=== PATIENT | female | born 1990 | race Caucasian/White ===

== ENCOUNTER 2016-11-13 05:47 | Day surgery (SDC) | payer OTHER, SELFPAY ==
[2016-11-13] MEDS ORDERED: Lactated Ringers 1,000 ML IV SCH (06:30)
[2016-11-13] MEDS ORDERED: SUBLIMAZE 100 MCG/2 ML IV ONE (08:00)
[2016-11-13] MEDS ORDERED: Versed 2 MG/2 ML Injection IV ONE (08:00)
[2016-11-13] MEDS ORDERED: DIPRIVAN 200 MG/20 ML IV ONE (08:00)
[2016-11-13] MEDS ORDERED: Lactated Ringers 1,000 ML IV ONE (08:24)
[2016-11-13 10:20] VITALS: BP 113/84; PULSE 79; O2SAT 98
--- NOTE | 2016-11-13 10:26 | OP ---
SURGERY DATE/TIME: 11/13/2016820 PREOPERATIVE DIAGNOSIS: Chronic diarrhea. POSTOPERATIVE DIAGNOSIS: Normal colon. PROCEDURE: Colonoscopy. SURGEON: Dr. Flores. ANESTHESIA: MAC. Medications given by anesthesia department. HISTORY: The patient is a 26 year-old white female presenting now for chronic diarrhea. The patient is noted to have had previous cholecystectomy. The patient is felt the need to have endoscopic evaluation. The patient was appraised of the risks of the procedure including the risk of perforation, phlebitis, untoward reaction to medication, bleeding, and missed lesions. The patient verbalized her understanding and desired to have the procedure performed. DESCRIPTION OF PROCEDURE: The patient was given the medications by the anesthesia department. She had continuous pulse oximetry, ECG monitoring, intermittent blood pressure monitoring, and tidal CO2 monitoring during the examination. She was placed in the left lateral decubitus position. A digital rectal examination was performed and revealed normal anal sphincter tone and no masses. The flexible Olympus pediatric colonoscope was used to intubate the rectum. A view of the colon was developed sequentially to the cecum including a short distance into the terminal ileum. Upon insertion and withdrawal, including a retroflex view in the rectum, no mucosal lesions were encountered. The scope was removed from the patient who tolerated the procedure well and was sent back to OP recovery in good condition.
== END 2016-11-13 10:00 | disposition home or self-care (01) ==
LOC: SDC 05:47 → EDSTATUS 09:49 → SDC 10:00
PROVIDERS: ATTEND Family Medicine
PROC: 0DJD8ZZ Inspection of Lower Intestinal Tract, Via Natural or Artificial Opening Endoscopic (ICD-10-PCS; principal; 2016-11-13)
DX: K52.9 Noninfective gastroenteritis and colitis, unspecified (principal)
CPT/HCPCS: 00810; 84703; J2250; J2704; J3010

== ENCOUNTER 2017-01-27 19:57 | Emergency (ER) | payer OTHER, SELFPAY ==
[2017-01-27 20:12] VITALS: BP 124/74; PULSE 104; O2SAT 99
--- NOTE | 2017-01-27 20:17 | ERPHSYRPT ---
- History of Present Illness Time Seen by Provider: 01/27/17 20:09 Source: patient Exam Limitations: no limitations Physician History: Pt. with buttock area discomfort for about 1 week and worse in past 2 days. Pt. with previous pilonidal cyst that was I and D about 2 years ago. States there is wound that is palpable and is getting bigger. No fever, chill, nausea or vomiting. No dizziness, weakness or systemic symptoms. Ibuprofen 400mg every 6 hrs for pain. Pt. with prolonged sitting yesterday, which made symptoms worse Timing/Duration: day(s) (7), intermittent Quality: painful Location: other (buttock) Possible Causes: no cause identified Modifying Factors: Improves With: other (sitting worsens) Associated Symptoms: change in skin texture, rash, No fever Allergies/Adverse Reactions: No Known Drug Allergies Allergy (Verified 06/18/16 09:07) Home Medications: Lisinopril 20 mg [Zestril 20 MG] 20 mg PO DAILY 05/31/16 [History] Hx Tetanus, Diphtheria Vaccination/Date Given: Yes Hx Influenza Vaccination/Date Given: Yes (fall 2015) Hx Pneumococcal Vaccination/Date Given: No - Review of Systems Constitutional: No Fever, No Chills Eyes: No Symptoms Ears, Nose, & Throat: No Symptoms Respiratory: No Symptoms, No Cough, No Dyspnea Cardiac: No Symptoms, No Chest Pain, No Edema, No Syncope Abdominal/Gastrointestinal: Constipation, No Abdominal Pain, No Nausea, No Vomiting, No Diarrhea Genitourinary Symptoms: No Symptoms, No Dysuria Musculoskeletal: No Symptoms, No Back Pain, No Neck Pain Skin: Cellulitis, Rash Neurological: No Symptoms, No Dizziness, No Focal Weakness, No Sensory Changes Psychological: No Symptoms Endocrine: No Symptoms All Other Systems: Reviewed and Negative - Past Medical History Pertinent Past Medical History: Yes Neurological History: No Pertinent History ENT History: No Pertinent History Cardiac History: Hypertension Respiratory History: No Pertinent History Endocrine Medical History: No Pertinent History Musculoskeletal History: No Pertinent History GI Medical History: Other History: No Pertinent History Psycho-Social History: No Pertinent History Female Reproductive Disorders: Other Other Medical History: polycystic ovaries - Past Surgical History Past Surgical History: Yes Neuro Surgical History: No Pertinent History Cardiac: No Pertinent History Respiratory: No Pertinent History Gastrointestinal: Cholecystectomy Genitourinary: No Pertinent History Musculoskeletal: No Pertinent History Female Surgical History: Section Other Surgical History: pt had tonsillectomy aug 2015, EGD May 2016 - Social History Smoking Status: Current every day smoker How long have you smoked: 10 years Exposure to second hand smoke: No Drug Use: none Patient Lives Alone: Yes - Female History Hx Now: No - Nursing Vital Signs Nursing Vital Signs: Initial Vital Signs Temperature 99.9 F Temperature Source Oral Pulse Rate 104 Respiratory Rate 16 Blood Pressure [Right Arm] 124/74 Pain Intensity 4 - Physical Exam General Appearance: no apparent distress, alert Eye Exam: PERRL/EOMI, eyes nml inspection Ears, Nose, Throat Exam: normal ENT inspection, pharynx normal, moist mucous membranes Neck Exam: normal inspection, non-tender, supple, full range of motion Respiratory Exam: normal breath sounds, lungs clear, No respiratory distress Cardiovascular Exam: regular rate/rhythm, normal heart sounds Gastrointestinal/Abdomen Exam: soft, mass, No tenderness Back Exam: normal inspection, normal range of motion, No CVA tenderness, No vertebral tenderness Extremity Exam: normal inspection, normal range of motion Neurologic Exam: alert, oriented x 3, cooperative, normal mood/affect, sensation nml, No motor deficits Skin Exam: warm, dry, other (No obvious skin lesions noted but mild tenderness about anal sphincter area with surrounding erythema. No abscess noted presently ) Lymphatic Exam: No adenopathy - Course Nursing assessment & vital signs reviewed: Yes - Progress Progress: unchanged Counseled pt/family regarding: diagnosis - Departure Time of Disposition: 20:20 Departure Disposition: Home Clinical Impression: Cellulitis Condition: Stable Critical Care Time: No Instructions: Cellulitis -- Adult Additional Instructions: RX: Keflex/Cortez Motrin or Tylenol for fever. Return for worse swelling, redness, pain, fever or any problems. Prescriptions: Hydrocodone Bit/Acetaminophen [Cortez 5-325 Tablet] 1 each PO Q6H PRN PRN #12 tablet PRN Reason: Pain Cephalexin Mh 500 mg [Keflex 500 mg] 500 mg PO QID #40 capsule
[2017-01-27] MEDS ORDERED: KEFLEX 500 MG PO ONE (20:24)
[2017-01-27] MEDS ORDERED: KEFLEX 500 MG ONE (20:26)
== END 2017-01-27 20:50 | disposition home or self-care (01) ==
LOC: ED 19:57
DX: L03.90 Cellulitis, unspecified (principal)
CPT/HCPCS: 99283; A9270-GY

== ENCOUNTER 2017-07-20 19:56 | Emergency (ER) | payer OTHER, SELFPAY ==
[2017-07-20] MEDS ORDERED: Nitrostat 0.4 MG (ED) SL ONE ×2 (20:09→20:17)
[2017-07-20] MEDS ORDERED: BABY ASPIRIN 81 MG CHEW PO ONE (20:09)
[2017-07-20] MEDS ORDERED: Sodium Chloride 0.9% 1000 ML 1,000 ML IV STA (20:09)
--- NOTE | 2017-07-20 20:15 | ERPHSYRPT ---
- History of Present Illness Time Seen by Provider: 07/20/17 20:01 Source: patient Exam Limitations: no limitations Patient Subjective Stated Complaint: pt states her bp was elevated at home and her heart rate was in the 120's Triage Nursing Assessment: pt alert and oreinted, asnwers questions approp. respirations nonlabored with gissel ngs cta. skin pink warm and dry. Physician History: FOR THE PAST 3 HOURS PT HAS HAD AN ELEVATED HEART RATE IN THE 120'S, ELEVATED BLOOD PRESSURE OF 140/120, CONSTANT CHEST PRESSURE AND SHORTNESS OF AIR. PT DENIES NAUSEA, VOMITING, FEVER, ABDOMINAL PAIN. Allergies/Adverse Reactions: No Known Drug Allergies Allergy (Verified 07/20/17 20:37) Home Medications: Lisinopril 20 mg [Zestril 20 MG] 20 mg PO DAILY 05/31/16 [History] Metoprolol Succinate 25 mg Xl* [Toprol-Xl 25MG Tablets] 25 mg PO DAILY [History] Hx Tetanus, Diphtheria Vaccination/Date Given: Yes Hx Influenza Vaccination/Date Given: Yes (2016) Hx Pneumococcal Vaccination/Date Given: No - Review of Systems Constitutional: Other (ELEVATED BLOOD PRESSURE), No Fever Respiratory: Dyspnea Cardiac: Other (CHEST PRESSURE; TACHYCARDIA.) Abdominal/Gastrointestinal: No Abdominal Pain, No Nausea, No Vomiting Neurological: No Headache All Other Systems: Reviewed and Negative - Past Medical History Pertinent Past Medical History: Yes Neurological History: No Pertinent History ENT History: No Pertinent History Cardiac History: Hypertension Respiratory History: No Pertinent History Endocrine Medical History: No Pertinent History Musculoskeletal History: No Pertinent History GI Medical History: Other History: No Pertinent History Psycho-Social History: No Pertinent History Female Reproductive Disorders: Other Other Medical History: cysts on ovaries - Past Surgical History Past Surgical History: Yes Neuro Surgical History: No Pertinent History Cardiac: No Pertinent History Respiratory: No Pertinent History Gastrointestinal: Cholecystectomy Genitourinary: No Pertinent History Musculoskeletal: No Pertinent History Female Surgical History: Section Other Surgical History: pt had tonsillectomy aug 2015, EGD May 2016 - Social History Smoking Status: Current every day smoker How long have you smoked: 10 years Exposure to second hand smoke: No Drug Use: none Patient Lives Alone: Yes - Female History Hx Last Menstrual Period: 2 weeks Hx Now: No - Nursing Vital Signs Nursing Vital Signs: Initial Vital Signs Temperature 97.9 F 11/18/17 20:03 Pulse Rate 118 H 07/20/17 20:03 Respiratory Rate 18 07/20/17 20:03 Blood Pressure 138/93 07/20/17 20:03 O2 Sat by Pulse Oximetry 100 07/20/17 20:03 Pain Scale Pain Intensity 0 - Physical Exam General Appearance: alert Eye Exam: PERRL/EOMI Ears, Nose, Throat Exam: TMs normal, pharynx normal, moist mucous membranes Neck Exam: normal inspection Respiratory Exam: lungs clear Cardiovascular Exam: normal heart sounds Gastrointestinal/Abdomen Exam: soft, normal bowel sounds Back Exam: normal range of motion Extremity Exam: normal inspection, No pedal edema Neurologic Exam: alert, cooperative Skin Exam: warm, dry SpO2 Interpretation: normal SpO2: 100 Oxygen Delivery: Room Air - Course Nursing assessment & vital signs reviewed: Yes EKG Interpreted by Me: RATE (93), Sinus Rhythm, NORMAL AXIS, NORMAL QRS - Radiology Exams Chest X-ray Interpretation: Interpreted by me, No Pneumonia Ordered Tests: Active Orders 24 hr Category Date Time Status Delivery Of Shopping News STAT Care 07/20/17 20:11 Active EKG-ER Only STAT Care 07/20/17 20:09 Active IV Insertion STAT Care 07/20/17 20:09 Active Oxygen-ED Only NASAL CANNULA 2 lpm Care 07/20/17 20:09 Active CHEST 2 VIEWS (PA AND LAT) Stat Exams 07/20/17 20:11 Ordered AMYLASE Stat Lab 07/20/17 20:25 Completed BLOOD CULTURE Stat Lab 07/20/17 21:30 Received CBC W DIFF Stat Lab 07/20/17 20:25 Completed CMP Stat Lab 07/20/17 20:25 Completed CULTURE,URINE Stat Lab 07/20/17 20:25 Received HCG QUALITATIVE,SERUM Stat Lab 07/20/17 20:25 Completed LIPASE Stat Lab 07/20/17 20:25 Completed MAGNESIUM Stat Lab 07/20/17 20:25 Completed NT PRO BNP Stat Lab 07/20/17 20:25 Completed T4 Stat Lab 07/20/17 20:25 Completed TROPONIN Q3H Lab 07/20/17 20:25 Completed TROPONIN Q3H Lab 07/20/17 23:15 Ordered TROPONIN Q3H Lab 07/21/17 02:15 Ordered TROPONIN Q3H Lab 07/21/17 05:15 Ordered TROPONIN Q3H Lab 07/21/17 08:15 Ordered TSH [TSH, 3RD Generation] Stat Lab 07/20/17 20:25 Completed UA W/ MICROSCOPIC Stat Lab 07/20/17 20:25 Completed Urine Triage Profile Stat Lab 07/20/17 20:25 Completed Medication Summary Discontinued Medications Generic Name Dose Route Start Last Admin Trade Name Chelsey PRN Reason Stop Dose Admin Aspirin 324 mg 07/20/17 20:09 07/20/17 20:18 Baby Aspirin 81 Mg Chew PO 07/20/17 20:10 324 mg STAT ONE Administration Aspirin Confirm 07/20/17 20:16 Baby Aspirin 81 Mg Chew Administered 07/20/17 20:17 Dose 324 mg .ROUTE .STK-MED ONE Sodium Chloride 1,000 mls @ 999 mls/hr 07/20/17 20:09 07/20/17 20:18 Sodium Chloride 0.9% 1000 Ml IV 07/20/17 21:09 999 mls/hr .Q1H1M STA Administration Sodium Chloride Confirm 07/20/17 20:17 Sodium Chloride 0.9% 1000 Ml Administered 07/20/17 20:18 Dose 1,000 mls @ ud .ROUTE .STK-MED ONE Ceftriaxone Sodium/Dextrose 1 g in 50 mls @ 100 mls/hr 07/20/17 21:10 21:18 Rocephin 1 Gm-D5w 50 Ml Bag IV 07/20/17 21:39 100 mls/hr STAT STA Administration Ceftriaxone Sodium/Dextrose Confirm 07/20/17 21:16 Rocephin 1 Gm-D5w 50 Ml Bag Administered 07/20/17 21:17 Dose 1 g in 50 mls @ ud IV .STK-MED ONE Nitroglycerin 0.4 mg 07/20/17 20:09 07/20/17 20:18 Nitrostat 0.4 Mg (Ed) SL 07/20/17 20:10 0.4 mg STAT ONE Administration Nitroglycerin Confirm 07/20/17 20:17 Nitrostat 0.4 Mg (Ed) Administered 07/20/17 20:18 Dose 0.4 mg SL .STK-MED ONE Lab/Rad Data: Laboratory Result Diagrams 07/20/17 20:25 07/20/17 20:25 Laboratory Results 07/20/17 07/20/1707/20/17 Range/Units 20:25 20:25 20:25 WBC 9.6 (4.0-10.5) K/mm3 RBC 4.96 (4.1-5.4) M/mm3 Hgb 15.2 (12.0-16.0) gm/dl Hct 46.1 (35-47) % MCV 92.9 (78-100) fl MCH 30.6 (26-32) pg MCHC 33.0 (32-36) g/dl RDW 12.1 (11.5-14.0) % Plt Count 187 (150-450) K/mm3 MPV 10.8 H (6-9.5) fl Gran % 54.3 (36.0-66.0) % Lymphocytes % 33.1 (24.0-44.0) % Monocytes % 10.6 (0.0-12.0) % Eosinophils % 1.8 (0.00-5.0) % Basophils % 0.2 (0.0-0.4) % Basophils # 0.02 (0-0.4) Sodium (136-145) mEq/L Potassium (3.5-5.1) mEq/L Chloride (98-107) mEq/L Carbon Dioxide (21-32) mEq/L Anion Gap (5-15) MEQ/L BUN (9-20) mg/dL Creatinine (0.55-1.30) mg/dl Estimated GFR ML/MIN Glucose (70-110) MG/DL Calcium (8.5-10.1) mg/dL Magnesium (1.8-2.4) mg/dL Total Bilirubin (0.2-1.0) mg/dL AST (15-37) U/L ALT (12-78) U/L Alkaline Phosphatase (46-116) U/L Troponin I < 0.017 (0.000-0.056) ng/ml NT-Pro-B Natriuret Pep (0-125) pg/ml Serum Total Protein (6.4-8.2) gm/dL Albumin (3.4-5.0) g/dL Amylase (25-115) U/L Lipase (73-393) U/L Thyroxine (T4) (4.7-13.3) UG/DL TSH 3rd Generation (0.358-3.740) mIU/L Serum , Qual NEGATIVE (Negative) Ur Collection Type Urine Color (YELLOW) Urine Appearance (CLEAR) Urine pH (5-6) Ur Specific Baxter (1.005-1.025) Urine Protein (Negative) Urine Ketones (NEGATIVE) Urine Blood (0-5) Garo/ul Urine Nitrite (NEGATIVE) Urine Bilirubin (NEGATIVE) Urine Urobilinogen (0-1) mg/dL Ur Leukocyte Esterase (NEGATIVE) Urine Microscopic RBC (0-2) /HPF Urine Microscopic WBC (0-5) /HPF Ur Epithelial Cells (FEW) /HPF Amorphous Crystals (NEGATIVE) /HPF Urine Bacteria (NEGATIVE) /HPF Urine Culture Reflexed (NO) Urine Glucose (NEGATIVE) mg/dL Urine Opiates Level (NEGATIVE) Ur Methadone (NEGATIVE) Urine Barbiturates (NEGATIVE) Ur Phencyclidine (PCP) (NEGATIVE) Urine Amphetamine (NEGATIVE) U Benzodiazepine Level (NEGATIVE) Urine Cocaine (NEGATIVE) Urine Marijuana (THC) (NEGATIVE) Specimen Received 07/20/17 07/20/17 07/20/17 Range/Units 20:25 20:25 20:25 WBC (4.0-10.5) K/mm3 RBC (4.1-5.4) M/mm3 Hgb (12.0-16.0) gm/dl Hct (35-47) % MCV (78-100) fl MCH (26-32) pg MCHC (32-36) g/dl RDW (11.5-14.0) % Plt Count (150-450) K/mm3 MPV (6-9.5) fl Gran % (36.0-66.0) % Lymphocytes % (24.0-44.0) % Monocytes % (0.0-12.0) % Eosinophils % (0.00-5.0) % Basophils % (0.0-0.4) % Basophils # (0-0.4) Sodium (136-145) mEq/L Potassium (3.5-5.1) mEq/L Chloride (98-107) mEq/L Carbon Dioxide (21-32) mEq/L Anion Gap (5-15) MEQ/L BUN (9-20) mg/dL Creatinine (0.55-1.30) mg/dl Estimated GFR ML/MIN Glucose (70-110) MG/DL Calcium (8.5-10.1) mg/dL Magnesium (1.8-2.4) mg/dL Total Bilirubin (0.2-1.0) mg/dL AST (15-37) U/L ALT (12-78) U/L Alkaline Phosphatase (46-116) U/L Troponin I (0.000-0.056) ng/ml NT-Pro-B Natriuret Pep (0-125) pg/ml Serum Total Protein (6.4-8.2) gm/dL Albumin (3.4-5.0) g/dL Amylase (25-115) U/L Lipase (73-393) U/L Thyroxine (T4) 9.5 (4.7-13.3) UG/DL TSH 3rd Generation 3.240 (0.358-3.740) mIU/L Serum , Qual (Negative) Ur Collection Type CLEAN CATCH Urine Color YELLOW (YELLOW) Urine Appearance CLEAR (CLEAR) Urine pH 7.0 (5-6) Ur Specific Baxter 1.015 (1.005-1.025) Urine Protein NEGATIVE (Negative) Urine Ketones NEGATIVE (NEGATIVE) Urine Blood 250 (0-5) Garo/ul Urine Nitrite NEGATIVE (NEGATIVE) Urine Bilirubin NEGATIVE (NEGATIVE) Urine Urobilinogen NORMAL (0-1) mg/dL Ur Leukocyte Esterase 2+ (NEGATIVE) Urine Microscopic RBC 5-10 (0-2) /HPF Urine Microscopic WBC 5-10 (0-5) /HPF Ur Epithelial Cells MODERATE (FEW) /HPF Amorphous Crystals MODERATE (NEGATIVE) /HPF Urine Bacteria FEW (NEGATIVE) /HPF Urine Culture Reflexed YES (NO) Urine Glucose NEGATIVE (NEGATIVE) mg/dL Urine Opiates Level NEG. (NEGATIVE) Ur Methadone NEG. (NEGATIVE) Urine Barbiturates NEG. (NEGATIVE) Ur Phencyclidine (PCP) NEG. (NEGATIVE) Urine Amphetamine NEG. (NEGATIVE) U Benzodiazepine Level NEG. (NEGATIVE) Urine Cocaine NEG. (NEGATIVE) Urine Marijuana (THC) NEG. (NEGATIVE) Specimen Received 07/20/17202407/20/17 Range/Units 20:25 WBC (4.0-10.5) K/mm3 RBC (4.1-5.4) M/mm3 Hgb (12.0-16.0) gm/dl Hct (35-47) % MCV (78-100) fl MCH (26-32) pg MCHC (32-36) g/dl RDW (11.5-14.0) % Plt Count (150-450) K/mm3 MPV (6-9.5) fl Gran % (36.0-66.0) % Lymphocytes % (24.0-44.0) % Monocytes % (0.0-12.0) % Eosinophils % (0.00-5.0) % Basophils % (0.0-0.4) % Basophils # (0-0.4) Sodium 141 (136-145) mEq/L Potassium 3.7 (3.5-5.1) mEq/L Chloride 103 (98-107) mEq/L Carbon Dioxide 26.3 (21-32) mEq/L Anion Gap 15.0 (5-15) MEQ/L BUN 14 (9-20) mg/dL Creatinine 0.98 (0.55-1.30) mg/dl Estimated GFR > 60 ML/MIN Glucose 94 (70-110) MG/DL Calcium 9.2 (8.5-10.1) mg/dL Magnesium 2.1 (1.8-2.4) mg/dL Total Bilirubin 0.40 (0.2-1.0) mg/dL AST 40 H (15-37) U/L ALT 115 H (12-78) U/L Alkaline Phosphatase 124 H (46-116) U/L Troponin I (0.000-0.056) ng/ml NT-Pro-B Natriuret Pep 6 (0-125) pg/ml Serum Total Protein 8.3 H (6.4-8.2) gm/dL Albumin 4.4 (3.4-5.0) g/dL Amylase 71 (25-115) U/L Lipase 237 (73-393) U/L Thyroxine (T4) (4.7-13.3) UG/DL TSH 3rd Generation (0.358-3.740) mIU/L Serum , Qual (Negative) Ur Collection Type Urine Color (YELLOW) Urine Appearance (CLEAR) Urine pH (5-6) Ur Specific Baxter (1.005-1.025) Urine Protein (Negative) Urine Ketones (NEGATIVE) Urine Blood (0-5) Garo/ul Urine Nitrite (NEGATIVE) Urine Bilirubin (NEGATIVE) Urine Urobilinogen (0-1) mg/dL Ur Leukocyte Esterase (NEGATIVE) Urine Microscopic RBC (0-2) /HPF Urine Microscopic WBC (0-5) /HPF Ur Epithelial Cells (FEW) /HPF Amorphous Crystals (NEGATIVE) /HPF Urine Bacteria (NEGATIVE) /HPF Urine Culture Reflexed (NO) Urine Glucose (NEGATIVE) mg/dL Urine Opiates Level (NEGATIVE) Ur Methadone (NEGATIVE) Urine Barbiturates (NEGATIVE) Ur Phencyclidine (PCP) (NEGATIVE) Urine Amphetamine (NEGATIVE) U Benzodiazepine Level (NEGATIVE) Urine Cocaine (NEGATIVE) Urine Marijuana (THC) (NEGATIVE) Specimen Received - Departure Time of Disposition: 21:59 Departure Disposition: Home Clinical Impression: CHEST PRESSURE, UTI, HTN Condition: Stable Critical Care Time: No Referrals: ARDEN BATISTA [Primary Care Provider] - Instructions: Chest Pain, Urinary Tract Infection (UTI) Additional Instructions: FOLLOW UP WITH PRIVATE DOCTOR TOMORROW. Prescriptions: Smz/Tmp Ds Tablet [Bactrim Ds Tablet] 1 udtab PO BID #20 tablet
[2017-07-20] MEDS ORDERED: BABY ASPIRIN 81 MG CHEW ONE (20:16)
[2017-07-20] MEDS ORDERED: Sodium Chloride 0.9% 1000 ML 1,000 ML ONE (20:17)
[2017-07-20 20:48] LABS: BASOPHIL % 0.2 % (0.0-0.4); Eosinophil % 1.8 % (0.00-5.0); Granulocytes % 54.3 % (36.0-66.0); Lymphocytes % 33.1 % (24.0-44.0); Mean Cell Volume 92.9 fl (78-100); Mean Corpuscular Hemoglobin 30.6 pg (26-32); Mean Platelet Volume 10.8 fl (6-9.5); Monocytes % 10.6 % (0.0-12.0); Platelet Count 187 K/mm3 (150-450); Red Blood Count 4.96 M/mm3 (4.1-5.4); Red Cell Distribution Width 12.1 % (11.5-14.0); White Blood Count 9.6 K/mm3 (4.0-10.5)
[2017-07-20 20:59] LABS: Collection Type CLEAN CATCH
[2017-07-20 21:05] LABS: Leukocyte Esterase 2+ (NEGATIVE)
[2017-07-20 21:06] LABS: Bilirubin NEGATIVE (NEGATIVE); Blood 250 Ery/ul (0-5); COMPLETE URINE MICROSCOPIC? YES; Glucose NEGATIVE (NEGATIVE)
[2017-07-20 21:08] LABS: ADD URINE CULTURE? YES (NO); Bacteria FEW /HPF (NEGATIVE); Epithelial Cells MODERATE /HPF (FEW)
[2017-07-20] MEDS ORDERED: ROCEPHIN 1 Gm-D5w 50 ml Bag** 1 G/50 ML IVPB IV STA (21:10)
[2017-07-20 21:16] LABS: ALBUMIN 4.4 g/dL (3.4-5.0); ALKALINE PHOSPHATASE 124 U/L (46-116); BLOOD UREA NITROGEN 14 mg/dL (9-20); CHLORIDE 103 mEq/L (98-107); Carbon Dioxide 26.3 mEq/L (21-32); Glucose 94 MG/DL (70-110); LIPASE 237 U/L (73-393); MAGNESIUM 2.1 mg/dL (1.8-2.4); Potassium 3.7 mEq/L (3.5-5.1); SGOT/AST 40 U/L (15-37); SGPT/ALT 115 U/L (12-78); SODIUM 141 mEq/L (136-145); Total Protein 8.3 gm/dL (6.4-8.2)
[2017-07-20] MEDS ORDERED: ROCEPHIN 1 Gm-D5w 50 ml Bag** 1 G/50 ML IVPB IV ONE (21:16)
[2017-07-20 22:12] VITALS: BP 128/88; PULSE 84; O2SAT 99
--- NOTE | 2017-07-21 09:03 | XRAY ---
Indication: Chest pain and short of breath. Hypertension. Comparison: September 02, 2014. PA/lateral chest again demonstrates normal heart, lungs, and bony thorax with a few incidental calcified granulomas.
== END 2017-07-20 22:11 | disposition home or self-care (01) ==
LOC: ED 19:56
DX: R07.89 Other chest pain (principal); N39.0 Urinary tract infection, site not specified; I10 Essential (primary) hypertension; Z79.899 Other long term (current) drug therapy
CPT/HCPCS: 36000; 36415; 71020; 80053; 80307; 81000; 82150; 83690; 83735; 83880; 84436; 84443; 84484; 84703; 85025; 87040; 87086; 93005; 93041; 96360; 96365; 99284; J0696; A9270-GY

== ENCOUNTER 2017-09-13 19:01 | Emergency (ER) | payer OTHER ==
[2017-09-13] MEDS ORDERED: DILAUDID 2 MG INJECTION IM STA (19:25)
[2017-09-13] MEDS ORDERED: Phenergan 25 MG INJ IM ONE (19:26)
[2017-09-13] MEDS ORDERED: Hydromorphone 1 mg/ml Ampule ONE (19:31)
[2017-09-13] MEDS ORDERED: Phenergan 25 MG INJ ONE (19:31)
--- NOTE | 2017-09-13 19:34 | ERPHSYRPT ---
- History of Present Illness Time Seen by Provider: 09/13/17 19:20 Source: patient Exam Limitations: clinical condition Patient Subjective Stated Complaint: Back Pain Triage Nursing Assessment: Pt states she was lifting a cough when she felt a "pop" in her right lower back. Pt states pain radiates to right hip, worse with movement. Motrin 600mg at 1700. No distress noted. Skin PWD. Physician History: PATIENT WITH A HISTORY OF HYPERTENSION COMPLAINS OF SEVERE BACK PAIN WHILE MOVING A COUCH, FELT POP IN LOWER BACK, STATES SEVERE PAIN RADIATES TO RIGHT BUTTOCK. Timing/Duration: today, other (2 HOURS AGO) Method of Injury: other (PUSHING COUCH.) Quality: sharp, throbbing Back Pain Location: lumbar spine Back Pain Radiation: buttocks Severity of Pain-Max: severe Modifying Factors: Improves With: movement Associated Symptoms: lower back pain, muscle spasms Previous symptoms: no prior history Allergies/Adverse Reactions: No Known Drug Allergies Allergy (Verified 07/20/17 20:37) Home Medications: Lisinopril 20 mg [Zestril 20 MG] 20 mg PO DAILY 05/31/16 [History] Metoprolol Succinate 25 mg Xl* [Toprol-Xl 25MG Tablets] 25 mg PO DAILY [History] Hx Tetanus, Diphtheria Vaccination/Date Given: Yes Hx Influenza Vaccination/Date Given: Yes Hx Pneumococcal Vaccination/Date Given: No Immunizations Up to Date: Yes - Review of Systems Constitutional: No Fever, No Chills Eyes: No Symptoms Ears, Nose, & Throat: No Symptoms Respiratory: No Cough, No Dyspnea Cardiac: No Chest Pain, No Edema, No Syncope Abdominal/Gastrointestinal: No Abdominal Pain, No Nausea, No Vomiting, No Diarrhea Genitourinary Symptoms: No Dysuria Musculoskeletal: Injury, No Back Pain, No Neck Pain Skin: No Rash Neurological: No Symptoms, No Dizziness, No Focal Weakness, No Sensory Changes Psychological: No Symptoms Endocrine: No Symptoms All Other Systems: Reviewed and Negative - Past Medical History Pertinent Past Medical History: Yes Neurological History: No Pertinent History ENT History: No Pertinent History Cardiac History: Arrhythmia, Hypertension Respiratory History: No Pertinent History Endocrine Medical History: No Pertinent History Musculoskeletal History: No Pertinent History GI Medical History: Other History: No Pertinent History Psycho-Social History: No Pertinent History Female Reproductive Disorders: Other Other Medical History: cysts on ovaries, tachycardia - Past Surgical History Past Surgical History: Yes Neuro Surgical History: No Pertinent History Cardiac: No Pertinent History Respiratory: No Pertinent History Gastrointestinal: Cholecystectomy Genitourinary: No Pertinent History Musculoskeletal: No Pertinent History Female Surgical History: Section Other Surgical History: pt had tonsillectomy aug 2015, EGD May 2016 - Social History Smoking Status: Current every day smoker How long have you smoked: 10 years Exposure to second hand smoke: Yes Drug Use: none Patient Lives Alone: No - Female History Hx Last Menstrual Period: 09/10/2017 Hx Now: No - Nursing Vital Signs Nursing Vital Signs: Initial Vital Signs Temperature 98.5 F 09/13/17 19:11 Pulse Rate 120 H 09/13/17 19:11 Respiratory Rate 14 09/13/17 19:11 Blood Pressure 141/92 09/13/17 19:11 O2 Sat by Pulse Oximetry 99 09/13/17 19:11 Pain Scale Pain Intensity [Back] 7 Pain Intensity 2 - Physical Exam General Appearance: moderate distress Eye Exam: PERRL/EOMI, eyes nml inspection Neck Exam: normal inspection, non-tender, supple, full range of motion, No meningismus, No midline tenderness Respiratory Exam: normal breath sounds, lungs clear, No respiratory distress Cardiovascular Exam: regular rate/rhythm, normal heart sounds Back Exam: normal inspection, vertebral tenderness, decreased range of motion, muscle spasm, point tenderness (MARKED TENDERNESS RIGHT SACROILIAC JOINT ) Peripheral Pulses: carotid (R): 2+, carotid (L): 2+, femoral (R): 2+, femoral (L ): 2+, dorsalis-pedis (R): 2+, dorsalis-pedis (L): 2+ Neurologic Exam: alert, oriented x 3, cooperative Skin Exam: normal color, warm SpO2 Interpretation: normal SpO2: 99 Oxygen Delivery: Room Air - CT Exams Lumbar Spine CT Interpretation: Tele-radiologist Report (NO ACUTE FINDINGS, NO FRACTURE ) Ordered Tests: Active Orders 24 hr Category Date Time Status LUMBAR SPINE W/O [CT] Stat Exams 09/13/17 20:15 Taken HCG,QUALITATIVE URINE Stat Lab 09/13/17 19:45 Completed Medication Summary Discontinued Medications Generic Name Dose Route Start Last Admin Trade Name Freq PRN Reason Stop Dose Admin Hydromorphone HCl 2 mg 09/13/17 19:25 09/13/17 19:36 Dilaudid 2 Mg Injection IM 09/13/17 19:26 2 mg STAT STA Administration Hydromorphone HCl Confirm 09/13/17 19:31 Hydromorphone 1 Mg/Ml Ampule Administered 09/13/17 19:32 Dose 2 mg .ROUTE .STK-MED ONE Promethazine HCl 25 mg 09/13/17 19:26 09/13/17 19:36 Phenergan 25 Mg Inj IM 09/13/17 19:27 25 mg STAT ONE Administration Promethazine HCl Confirm 09/13/17 19:31 Phenergan 25 Mg Inj Administered 09/13/17 19:32 Dose 25 mg .ROUTE .STK-MED ONE Lab/Rad Data: Laboratory Results 09/13/17 Range/Units 19:45 Urine HCG, Qual NEGATIVE (Negative) - Progress Progress: improved Progress Note: 09/13/17 19:37 ADMINISTERED DILAUDID 2MG/ PHENERGAN 25MG IM Counseled pt/family regarding: diagnosis, need for follow-up, rad results - Departure Time of Disposition: 21:20 Departure Disposition: Home Clinical Impression: ACUTE LUMBAR STRAIN Condition: Stable Critical Care Time: No Referrals: ARDEN BATISTA [Primary Care Provider] - Additional Instructions: FOLLOWUP WITH YOUR PRIMARY CARE PROVIDER FOR EVALUATION. MOTRIN 600MG EVERY 6 HOURS FOR MILD TO MODERATE PAIN. ULTRAM 50MG EVERY 6 HOURS FOR SEVERE PAIN AND NORFLEX 100MG TWICE DAILY FOR MUSCLE SPASM. RETURN TO EMERGENCY FOR INCREASING PAIN. Prescriptions: Ibuprofen 600 mg PO Q6HPRN PRN #20 tablet PRN Reason: Pain Tramadol HCl 50 mg [Ultram 50 mg] 50 mg PO Q6HPRN PRN #15 tablet PRN Reason: Pain Orphenadrine Citrate 100 mg [Norflex 100 MG Tablet] 100 mg PO BIDPRN PRN # 10 tab PRN Reason: Muscle Spasms Tramadol HCl 50 mg [Ultram 50 mg] 50 mg PO BIDPRN PRN #15 tablet PRN Reason: Pain
[2017-09-13 21:05] VITALS: BP 127/90; PULSE 95; O2SAT 99
--- NOTE | 2017-09-14 06:29 | XRAY ---
Indication: Right lower back pain radiating to right hip for 3 hours. Multiple contiguous axial images obtained through the lumbar spine. Sagittal and coronal reformatted images obtained. Comparison: CT abdomen and pelvis January 31, 2016. Stable L4-L5 broad-based disc bulge minimally effacing the thecal sac and producing bilateral foraminal narrowing. Remaining levels negative for large disc herniation or spinal canal stenosis. Facets are symmetric. Sagittal and coronal reformatted images demonstrates normal lumbar alignment. Vertebral body heights and disc spaces maintained. No acute compression fracture or subluxation. Visualized noncontrasted soft tissues unremarkable. Previous cholecystectomy. Impression: Stable L4-L5 broad-based disc bulge better evaluated with outpatient MRI. Comment: Preliminary interpretation was made by [facility]. No critical discrepancy. CTDI 127.30
== END 2017-09-13 21:41 | disposition home or self-care (01) ==
LOC: ED 19:01
DX: S39.012A Strain of muscle, fascia and tendon of lower back, initial encounter (principal); R05 Cough; I10 Essential (primary) hypertension; Z79.899 Other long term (current) drug therapy
CPT/HCPCS: 72131; 84703; 99284; J1170; J2550

== ENCOUNTER 2018-04-28 19:11 | Emergency (ER) | payer BC, OTHER ==
--- NOTE | 2018-04-28 20:05 | ERPHSYRPT ---
- History of Present Illness Time Seen by Provider: 04/28/18 19:56 Source: patient, family Exam Limitations: no limitations Patient Subjective Stated Complaint: pt arrives to ER with c/o Sorethroat that began Saturday and fever as high as 100.5F, kept down with Tylenol. pt believes has strept throat, states is painful to swallow. Pt also c/o right earache. Triage Nursing Assessment: see above. Physician History: The patient is a 28-year-old female with her mother complaining of a sore throat that began on Saturday, 3 days ago. She's had a fever as high as 100.5. She has been taking Tylenol. She also has a right earache that she thinks this is due to the sore throat. She denies nausea or vomiting. She's had strep throat in the past. She's had a tonsillectomy. Her past medical history is also significant for hypertension. Timing/Duration: gradual onset, days (3) Severity: moderate ENT Location: throat Prearrival Treatment: over the counter meds Modifying Factors: Improves With: nothing Associated Symptoms: ear pain (R), fever, sore throat Allergies/Adverse Reactions: No Known Drug Allergies Allergy (Verified 04/28/18 19:47) Home Medications: Lisinopril 20 mg [Zestril 20 MG] 20 mg PO DAILY 05/31/16 [History] Metoprolol Succinate 25 mg Xl* [Toprol-Xl 25MG Tablets] 25 mg PO DAILY [History] Hx Tetanus, Diphtheria Vaccination/Date Given: Yes Hx Influenza Vaccination/Date Given: Yes Hx Pneumococcal Vaccination/Date Given: No - Review of Systems Constitutional: Fever Eyes: No Symptoms Ears, Nose, & Throat: Ear Pain (rsight), Throat Pain Respiratory: No Cough, No Dyspnea Cardiac: No Chest Pain, No Edema, No Syncope Abdominal/Gastrointestinal: No Abdominal Pain, No Nausea, No Vomiting, No Diarrhea Genitourinary Symptoms: No Dysuria Musculoskeletal: No Back Pain, No Neck Pain Skin: No Rash Neurological: No Dizziness, No Focal Weakness, No Sensory Changes Psychological: No Symptoms Endocrine: No Symptoms Hematologic/Lymphatic: No Symptoms Immunological/Allergic: No Symptoms All Other Systems: Reviewed and Negative - Past Medical History Pertinent Past Medical History: Yes Neurological History: No Pertinent History ENT History: No Pertinent History Cardiac History: Arrhythmia, Hypertension Respiratory History: No Pertinent History Endocrine Medical History: No Pertinent History Musculoskeletal History: No Pertinent History GI Medical History: Other History: No Pertinent History Psycho-Social History: No Pertinent History Female Reproductive Disorders: Other Other Medical History: cysts on ovaries, tachycardia - Past Surgical History Past Surgical History: Yes Neuro Surgical History: No Pertinent History Cardiac: No Pertinent History Respiratory: No Pertinent History Gastrointestinal: Cholecystectomy Genitourinary: No Pertinent History Musculoskeletal: No Pertinent History Female Surgical History: Section Other Surgical History: pt had tonsillectomy aug 2015, EGD May 2016 - Social History Smoking Status: Current every day smoker How long have you smoked: 10 years Exposure to second hand smoke: Yes Drug Use: none Patient Lives Alone: No - Female History Hx Now: No - Nursing Vital Signs Nursing Vital Signs: Initial Vital Signs Temperature 99.2 F 04/28/18 19:40 Pulse Rate 101 H 04/28/18 19:40 Respiratory Rate 18 04/28/18 19:40 Blood Pressure 137/106 04/28/18 19:40 O2 Sat by Pulse Oximetry 98 04/28/18 19:40 Pain Scale Pain Intensity 1 - Physical Exam General Appearance: no apparent distress, alert Eye Exam: bilateral eye: normal inspection, PERRL Ear Exam: bilateral ear: auricle normal, canal normal, TM normal Nasal Exam: normal inspection Throat Exam: pharynx normal, No tonsillar exudate, No tonsillar swelling ( tonsils surgically absent) Neck Exam: supple Cardiovascular/Respiratory Exam: normal breath sounds, regular rate/rhythm Abdominal Exam: non-tender, soft Neurologic Exam: alert, oriented x 3, sensation nml, No motor deficits Skin Exam: normal color, warm, dry SpO2 Interpretation: normal SpO2: 98 Oxygen Delivery: Room Air Ordered Tests: Medication Summary Discontinued Medications Generic Name Dose Route Start Last Admin Trade Name Freq PRN Reason Stop Dose Admin Ketorolac Tromethamine 60 mg 04/28/18 20:08 04/28/18 20:25 Toradol 30 Mg Injection IM 04/28/18 20:09 60 mg STAT ONE Administration Ketorolac Tromethamine Confirm 04/28/18 20:21 Toradol 30 Mg Injection Administered 04/28/18 20:22 Dose 30 mg .ROUTE .STK-MED ONE Ketorolac Tromethamine Confirm 04/28/18 20:21 Toradol 30 Mg Injection Administered 04/28/18 20:22 Dose 30 mg .ROUTE .STK-MED ONE Lab/Rad Data: Laboratory Results 04/28/18 Range/Units 19:45 Group A Strep Antibody NEGATIVE (NEGATIVE) - Progress Progress: improved Counseled pt/family regarding: lab results, diagnosis - Departure Time of Disposition: 21:06 Departure Disposition: Home Clinical Impression: Pharyngitis Condition: Stable Critical Care Time: No Referrals: ARDEN BATISTA [Primary Care Provider] - Additional Instructions: You have viral pharyngitis. Your strep test was negative. You were given Toradol 60 mg by IM in the ER. You may continue with Tylenol and ibuprofen as needed. Gargle with warm salt water as needed. Follow-up as needed.
[2018-04-28] MEDS ORDERED: TORAdol 30 mg Injection IM ONE (20:08)
[2018-04-28] MEDS ORDERED: TORAdol 30 mg Injection ONE ×2 (20:21)
[2018-04-28 21:16] VITALS: BP 120/87; PULSE 87; O2SAT 97
== END 2018-04-28 21:16 | disposition home or self-care (01) ==
LOC: ED 19:11
DX: J02.9 Acute pharyngitis, unspecified (principal); H92.01 Otalgia, right ear
CPT/HCPCS: 87651; 96372; 99284; J1885

== ENCOUNTER 2018-05-02 07:55 | Emergency (ER) | payer BC, OTHER ==
--- NOTE | 2018-05-02 08:23 | ERPHSYRPT ---
- History of Present Illness Time Seen by Provider: 05/02/18 08:22 Source: patient Exam Limitations: no limitations Patient Subjective Stated Complaint: Right hand injury Triage Nursing Assessment: Patient ambulated to ER and transferred self to bed. Patient A+O x 3. Patient complains of right hand pain. Patient was trying put dog back in house and right hand caught the doorway and part of her hand went sideways. Patient's hand is noted to be painful and swollen. No bruising noted. Physician History: 28 y/o right handed white female presents with right hand injury. occurred this am when she was walking her dog and hand became tangled in leash. Occurred: just prior to arrival Method of Injury: twisted Quality: intermittent, aching, throbbing Severity of Pain-Max: moderate Severity of Pain-Current: mild Extremities Pain Location: wrist: right, hand: right Modifying Factors: Improves With: movement (worsens) Associated Symptoms: none, No back pain, No chest discomfort, No chest pain, No dyspnea, No neck pain, No short of breath Allergies/Adverse Reactions: No Known Drug Allergies Allergy (Verified 05/02/18 08:08) Home Medications: Lisinopril 20 mg [Zestril 20 MG] 20 mg PO DAILY 05/31/16 [History] Metoprolol Succinate 25 mg Xl* [Toprol-Xl 25MG Tablets] 25 mg PO DAILY [History] Hx Tetanus, Diphtheria Vaccination/Date Given: Yes Hx Influenza Vaccination/Date Given: Yes Hx Pneumococcal Vaccination/Date Given: No Immunizations Up to Date: Yes - Review of Systems Constitutional: No Symptoms Eyes: No Symptoms Ears, Nose, & Throat: No Symptoms Respiratory: No Symptoms Cardiac: No Symptoms Abdominal/Gastrointestinal: No Symptoms Genitourinary Symptoms: No Symptoms Musculoskeletal: Injury (right hand and wrist) Skin: No Symptoms Neurological: No Symptoms Psychological: No Symptoms Endocrine: No Symptoms Hematologic/Lymphatic: No Symptoms Immunological/Allergic: No Symptoms All Other Systems: Reviewed and Negative - Past Medical History Pertinent Past Medical History: Yes Neurological History: No Pertinent History ENT History: No Pertinent History Cardiac History: Arrhythmia, Hypertension Respiratory History: No Pertinent History Endocrine Medical History: No Pertinent History Musculoskeletal History: No Pertinent History GI Medical History: Other History: No Pertinent History Psycho-Social History: No Pertinent History Female Reproductive Disorders: Other Other Medical History: cysts on ovaries, tachycardia - Past Surgical History Past Surgical History: Yes Neuro Surgical History: No Pertinent History Cardiac: No Pertinent History Respiratory: No Pertinent History Gastrointestinal: Cholecystectomy Genitourinary: No Pertinent History Musculoskeletal: No Pertinent History Female Surgical History: Section Other Surgical History: pt had tonsillectomy aug 2015, EGD May 2016 - Social History Smoking Status: Current every day smoker How long have you smoked: 10 years Exposure to second hand smoke: No Drug Use: none Patient Lives Alone: No - Female History Hx Last Menstrual Period: 4 days ago Hx Now: No - Nursing Vital Signs Nursing Vital Signs: Initial Vital Signs Temperature 98.0 F 05/02/18 08:02 Pain Scale Pain Intensity 8 - Physical Exam General Appearance: mild distress, alert, anxiety Eyes, Ears, Nose, Throat Exam: normal ENT inspection Neck Exam: normal inspection, non-tender, supple, full range of motion Cardiovascular/Respiratory Exam: chest non-tender, normal breath sounds Abdominal Exam: non-tender Back Exam: normal inspection, normal range of motion, No CVA tenderness, No vertebral tenderness Shoulder Exam: normal inspection, non-tender, no evidence of injury, normal ROM Elbow/Forearm Exam: normal inspection, non-tender, no evidence of injury, normal ROM Wrist Exam: normal ROM, bone tenderness Hand Exam: normal ROM, abrasions, soft tissue tenderness, swelling Neuro/Tendon Exam: normal sensation, normal motor functions, normal tendon functions, responds to pain, no evidence tendon injury Mental Status Exam: alert, oriented x 3, cooperative Skin Exam: normal color, warm, dry, abrasion SpO2 Interpretation: normal SpO2: 100 Oxygen Delivery: Room Air - Course Nursing assessment & vital signs reviewed: Yes Ordered Tests: Active Orders 24 hr Category Date Time Status HAND (MINIMUM 3 VIEWS) Stat Exams 05/02/18 08:23 Completed WRIST (MIN 3 VIEWS) Stat Exams 05/02/18 08:23 Completed Lab/Rad Data: xray right hand and wrist no acute findings - Progress Progress: unchanged Counseled pt/family regarding: diagnosis, need for follow-up, rad results - Departure Time of Disposition: 09:15 Departure Disposition: Home Clinical Impression: Sprain and strain of hand, Sprain of wrist Condition: Stable Critical Care Time: No Referrals: ARDEN BATISTA [Primary Care Provider] - Additional Instructions: ice bath 3 times daily for 2 days. add ibuprofen for pain. follow up with primary doctor for persistent symptoms Prescriptions: Hydrocodone/APAP 5/325 [[place] 5/325 mg] 1 each PO Q8H PRN PRN #6 tablet MDD 3 PRN Reason: Pain
--- NOTE | 2018-05-02 08:48 | XRAY ---
Indication: Pain following injury. Comparison: None 3 views of the right wrist demonstrates normal bones, articulation, and soft tissues.
--- NOTE | 2018-05-02 08:48 | XRAY ---
Indication: Pain following injury. Comparison: None 3 views of the right hand demonstrates normal bones, articulation, and soft tissues.
[2018-05-02 09:32] VITALS: BP 136/80; PULSE 94; O2SAT 99
== END 2018-05-02 09:39 | disposition home or self-care (01) ==
LOC: ED 07:55
DX: S63.501A Unspecified sprain of right wrist, initial encounter (principal); S63.91XA Sprain of unspecified part of right wrist and hand, initial encounter; Z79.899 Other long term (current) drug therapy; W23.0XXA Caught, crushed, jammed, or pinched between moving objects, initial encounter; Y93.K1 Activity, walking an animal; Y92.009 Unspecified place in unspecified non-institutional (private) residence as the place of occurrence of the external cause
CPT/HCPCS: 73110; 73130; 99283

== ENCOUNTER 2018-05-27 11:02 | Emergency (ER) | payer BC, OTHER ==
[2018-05-27] MEDS ORDERED: BABY ASPIRIN 81 MG CHEW PO ONE (11:40)
[2018-05-27 11:49] LABS: BASOPHIL % 0.2 % (0.0-0.4); Basophil (Absolute #) 0.01 (0-0.4); Eosinophil % 2.5 % (0.00-5.0); Eosinophil (Absolute #) 0.15 (0-0.5); Granulocyte Absolute (ANC) 2.98 (1.4-6.9); Granulocytes % 50.3 % (36.0-66.0); Hematocrit 44.5 % (35-47); Hemoglobin 14.8 gm/dl (12.0-16.0); Lymphocyte (Absolute #) 2.19 (1.0-4.6); Lymphocytes % 36.9 % (24.0-44.0); Mean Cell Volume 95.9 fl (78-100); Mean Corpuscular Hemoglobin 31.9 pg (26-32); Mean Corpuscular Hgb Concent. 33.3 g/dl (32-36); Mean Platelet Volume 10.5 fl (6-9.5); Monocytes % 10.1 % (0.0-12.0); Platelet Count 173 K/mm3 (150-450); Red Blood Count 4.64 M/mm3 (4.1-5.4); Red Cell Distribution Width 12.3 % (11.5-14.0); White Blood Count 5.9 K/mm3 (4.0-10.5)
--- NOTE | 2018-05-27 11:52 | ERPHSYRPT ---
- History of Present Illness Time Seen by Provider: 05/27/18 11:30 Historian: patient Exam Limitations: clinical condition Patient Subjective Stated Complaint: Pt states "My doctor took me off my medicine, metoprolol and lisinopril, and today I was a little dizzy and when I took my pressure it was 148/112." Triage Nursing Assessment: Pt alert and oriented X 3, skin pwd. PT ambulates with an upright steady gait, able to speak in clear full sentences. Pt in no apparent respiratory distress. Physician History: PATIENT WITH A HISTORY OF HYPERTENSION, WAS TAKEN OFF ALL BLOOD PRESSURE MEDICATIONS 1 WEEK AGO AND COMPLAINS OF DIZZINESS AND TRANSIENT CHEST TIGHTNESS. DENIES HEADACHE, BLURRED VISION, DYSPNEA OR CHEST PAIN UPON ARRIVAL. Timing/Duration: today Activities at Onset: activity Quality: tightness Location: substernal Chest Pain Radiation: no radiation Severity of Pain-Max: mild Severity of Pain-Current: none Modifying Factors: Improves With: nothing Associated Symptoms: other (DIZZINESS) Prior Chest Pain/Cardiac Workup: no prior chest pain Nitro Today/Relief: no nitro taken today Aspirin Treatment Today: 81 mg x 4, provided by ED Allergies/Adverse Reactions: No Known Drug Allergies Allergy (Verified 05/02/18 08:08) Home Medications: No Reportable Medications [No Reported Medications] 05/27/18 [History] Hx Tetanus, Diphtheria Vaccination/Date Given: Yes Hx Influenza Vaccination/Date Given: Yes Hx Pneumococcal Vaccination/Date Given: No Immunizations Up to Date: Yes - Review of Systems Constitutional: No Fever, No Chills Eyes: No Symptoms Ears, Nose, & Throat: No Symptoms Respiratory: No Symptoms, No Cough, No Dyspnea Cardiac: No Chest Pain, No Edema, No Syncope Abdominal/Gastrointestinal: No Symptoms, No Abdominal Pain, No Nausea, No Vomiting, No Diarrhea Genitourinary Symptoms: No Symptoms, No Dysuria Musculoskeletal: No Symptoms, No Back Pain, No Neck Pain Skin: No Rash Neurological: No Dizziness, No Focal Weakness, No Sensory Changes Psychological: No Symptoms Endocrine: No Symptoms All Other Systems: Reviewed and Negative - Past Medical History Pertinent Past Medical History: Yes Neurological History: No Pertinent History ENT History: No Pertinent History Cardiac History: Arrhythmia, Hypertension Respiratory History: No Pertinent History Endocrine Medical History: No Pertinent History Musculoskeletal History: No Pertinent History GI Medical History: Other History: No Pertinent History Psycho-Social History: No Pertinent History Female Reproductive Disorders: Other Other Medical History: cysts on ovaries, tachycardia - Past Surgical History Past Surgical History: Yes Neuro Surgical History: No Pertinent History Cardiac: No Pertinent History Respiratory: No Pertinent History Gastrointestinal: Cholecystectomy Genitourinary: No Pertinent History Musculoskeletal: No Pertinent History Female Surgical History: Section Other Surgical History: pt had tonsillectomy aug 2015, EGD May 2016 - Social History Smoking Status: Current every day smoker How long have you smoked: 10 years Exposure to second hand smoke: Yes Drug Use: none Patient Lives Alone: No - Female History Hx Last Menstrual Period: 04/22/2018 Hx Now: (unknown) - Nursing Vital Signs Nursing Vital Signs: Initial Vital Signs Temperature 98.8 F 05/27/18 11:12 Pulse Rate 94 H 05/27/18 11:12 Respiratory Rate 18 05/27/18 11:12 Blood Pressure 135/89 05/27/18 11:12 O2 Sat by Pulse Oximetry 99 05/27/18 11:12 Pain Scale Pain Intensity 2 - Physical Exam General Appearance: no apparent distress, alert Eye Exam: PERRL/EOMI, eyes nml inspection Ears, Nose, Throat Exam: normal ENT inspection, moist mucous membranes Neck Exam: normal inspection, non-tender, supple, full range of motion Respiratory Exam: normal breath sounds, lungs clear, No respiratory distress Cardiovascular Exam: regular rate/rhythm, normal heart sounds, tachycardia Gastrointestinal/Abdomen Exam: soft, No tenderness, No mass Back Exam: normal inspection, No CVA tenderness, No vertebral tenderness Extremity Exam: normal inspection, normal range of motion Neurologic Exam: alert, oriented x 3, cooperative, normal mood/affect, sensation nml, No motor deficits Skin Exam: normal color, warm, dry SpO2: 99 Oxygen Delivery: Room Air - Course EKG Interpreted by Me: RATE, Sinus Rhythm, NORMAL AXIS (RATE 84) Ordered Tests: Active Orders 24 hr Category Date Time Status EKG-ER Only STAT Care 05/27/18 11:40 Active IV Insertion STAT Care 05/27/18 11:40 Active BMP Stat Lab 05/27/18 11:47 Completed CBC W DIFF Stat Lab 05/27/18 11:47 Completed TROPONIN Q3H Lab 05/27/18 11:47 Completed TROPONIN Q3H Lab 05/27/18 14:45 Ordered TROPONIN Q3H Lab 05/27/18 17:45 Ordered TROPONIN Q3H Lab 05/27/18 20:45 Ordered TROPONIN Q3H Lab 05/27/18 23:45 Ordered Medication Summary Discontinued Medications Generic Name Dose Route Start Last Admin Trade Name Chelsey PRN Reason Stop Dose Admin Aspirin 324 mg 05/27/18 11:40 05/27/18 12:05 Baby Aspirin 81 Mg Chew PO 05/27/18 11:41 324 mg STAT ONE Administration Aspirin Confirm 05/27/18 12:08 Baby Aspirin 81 Mg Chew Administered 05/27/18 12:09 Dose 324 mg .ROUTE .STK-MED ONE Lab/Rad Data: Laboratory Result Diagrams 05/27/18 11:47 05/27/18 11:47 Laboratory Results 05/27/18 05/27/18 05/27/18 Range/Units 11:47 11:47 11:47 WBC 5.9 (4.0-10.5) K/mm3 RBC 4.64 (4.1-5.4) M/mm3 Hgb 14.8 (12.0-16.0) gm/dl Hct 44.5 (35-47) % MCV 95.9 (78-100) fl MCH 31.9 (26-32) pg MCHC 33.3 (32-36) g/dl RDW 12.3 (11.5-14.0) % Plt Count 173 (150-450) K/mm3 MPV 10.5 H (6-9.5) fl Gran % 50.3 (36.0-66.0) % Eos # (Auto) 0.15 (0-0.5) Absolute Lymphs (auto) 2.19 (1.0-4.6) Absolute Monos (auto) 0.60 (0.0-1.3) Lymphocytes % 36.9 (24.0-44.0) % Monocytes % 10.1 (0.0-12.0) % Eosinophils % 2.5 (0.00-5.0) % Basophils % 0.2 (0.0-0.4) % Absolute Granulocytes 2.98 (1.4-6.9) Basophils # 0.01 (0-0.4) Sodium 141 (137-145) mmol/L Potassium 4.2 (3.5-5.1) mmol/L Chloride 104 (98-107) mmol/L Carbon Dioxide 27 (22-30) mmol/L Anion Gap 13.5 (5-15) MEQ/L BUN 11 (7-17) mg/dL Creatinine 0.74 (0.52-1.04) mg/dL Estimated GFR > 60.0 ML/MIN Glucose 103 (74-106) mg/dL Calcium 9.3 (8.4-10.2) mg/dL Troponin I < 0.012 (0.000-0.034) ng/mL - Progress Progress: improved, re-examined Progress Note: 05/27/18 11:53 SALINE LOCK INSERTION, ADMINISTERED 4 BABY ASPIRIN, SERIAL BLOOD PRESSURE- NORMOTENSIVE 05/27/18 12:57 Counseled pt/family regarding: lab results, diagnosis - Departure Time of Disposition: 13:10 Departure Disposition: Home Clinical Impression: ATYPICAL CHEST PAIN Condition: Stable Critical Care Time: No Referrals: ARDEN BATISTA [Primary Care Provider] - Additional Instructions: CONSULT YOUR SYSTEM ENGINEER AND PRIMARY CARE PROVIDER FOR EVALUATION, TREATMENT AND REVIEW OF MEDICATIONS. RETURN TO EMERGENCY FOR ONSET OF CHEST PAIN.
[2018-05-27 12:00] LABS: ANION GAP 13.5 MEQ/L (5-15); BLOOD UREA NITROGEN 11 mg/dL (7-17); CHLORIDE 104 mmol/L (98-107); Calcium 9.3 mg/dL (8.4-10.2); Carbon Dioxide 27 mmol/L (22-30); Creatinine 1 0.74 mg/dL (0.52-1.04); Glucose 103 mg/dL (74-106); Potassium 4.2 mmol/L (3.5-5.1); SODIUM 141 mmol/L (137-145)
[2018-05-27] MEDS ORDERED: BABY ASPIRIN 81 MG CHEW ONE (12:08)
[2018-05-27 13:02] VITALS: O2SAT 99
[2018-05-27 13:03] VITALS: BP 106/78; PULSE 68
== END 2018-05-27 13:34 | disposition home or self-care (01) ==
LOC: ED 11:02
DX: R07.89 Other chest pain (principal); R42 Dizziness and giddiness
CPT/HCPCS: 36000; 36415; 80048; 84484; 85025; 93005; 99284; A9270-GY

== ENCOUNTER 2018-06-15 20:05 | Emergency (ER) | payer BC, OTHER ==
[2018-06-15 20:19] VITALS: PULSE 118; O2SAT 99
--- NOTE | 2018-06-15 20:23 | ERPHSYRPT ---
- History of Present Illness Time Seen by Provider: 06/15/18 20:16 Source: patient Exam Limitations: no limitations Physician History: The patient is a 28-year-old female with family complaining that she has a worsening abscess/infection on the outside of her left breast for 3 days. Yesterday she "popped" it and green fluid draining from it. Today it is getting more surrounding redness and tenderness. She denies fever or chills. She denies ever having MRSA. Timing/Duration: day(s) (3) Quality: painful Severity: moderate Location: other (left breast) Possible Causes: no cause identified Associated Symptoms: rash, swelling/mass/lumps Allergies/Adverse Reactions: No Known Drug Allergies Allergy (Verified 05/02/18 08:08) Hx Tetanus, Diphtheria Vaccination/Date Given: Yes Hx Influenza Vaccination/Date Given: Yes Hx Pneumococcal Vaccination/Date Given: No - Review of Systems Constitutional: No Fever, No Chills Eyes: No Symptoms Ears, Nose, & Throat: No Symptoms Respiratory: No Cough, No Dyspnea Cardiac: No Chest Pain, No Edema, No Syncope Abdominal/Gastrointestinal: No Abdominal Pain, No Nausea, No Vomiting, No Diarrhea Genitourinary Symptoms: No Dysuria Musculoskeletal: No Back Pain, No Neck Pain Skin: Cellulitis, Rash Neurological: No Dizziness, No Focal Weakness, No Sensory Changes Psychological: No Symptoms Endocrine: No Symptoms Hematologic/Lymphatic: No Symptoms Immunological/Allergic: No Symptoms All Other Systems: Reviewed and Negative - Past Medical History Pertinent Past Medical History: Yes Neurological History: No Pertinent History ENT History: No Pertinent History Cardiac History: Arrhythmia, Hypertension Respiratory History: No Pertinent History Endocrine Medical History: No Pertinent History Musculoskeletal History: No Pertinent History GI Medical History: Other History: No Pertinent History Psycho-Social History: No Pertinent History Female Reproductive Disorders: Other Other Medical History: cysts on ovaries, tachycardia - Past Surgical History Past Surgical History: Yes Neuro Surgical History: No Pertinent History Cardiac: No Pertinent History Respiratory: No Pertinent History Gastrointestinal: Cholecystectomy Genitourinary: No Pertinent History Musculoskeletal: No Pertinent History Female Surgical History: Section Other Surgical History: pt had tonsillectomy aug 2015, EGD May 2016 - Social History Smoking Status: Current every day smoker How long have you smoked: 10 years Exposure to second hand smoke: Yes Drug Use: none Patient Lives Alone: No - Nursing Vital Signs Nursing Vital Signs: Initial Vital Signs Temperature 98.6 F 06/15/18 20:05 Pulse Rate 118 H 06/15/18 20:05 Respiratory Rate 18 06/15/18 20:05 Blood Pressure 145/88 06/15/18 20:05 O2 Sat by Pulse Oximetry 99 06/15/18 20:05 Pain Scale Pain Intensity 6 - Physical Exam General Appearance: no apparent distress, alert Eye Exam: PERRL/EOMI, eyes nml inspection Ears, Nose, Throat Exam: normal ENT inspection, pharynx normal, moist mucous membranes Neck Exam: normal inspection, non-tender, supple, full range of motion Respiratory Exam: normal breath sounds, lungs clear, No respiratory distress Cardiovascular Exam: regular rate/rhythm, normal heart sounds Gastrointestinal/Abdomen Exam: soft, mass, No tenderness Pelvic Exam: not done Rectal Exam: not done Back Exam: normal inspection, normal range of motion, No CVA tenderness, No vertebral tenderness Extremity Exam: normal inspection, normal range of motion Neurologic Exam: alert, oriented x 3, cooperative, normal mood/affect, sensation nml, No motor deficits Skin Exam: other (Examination of the left breast: There is a 5 mm ulceration with yellow green tissue in the center without drainage. There is no fluctuant material beneath the abscess. The area is tender. There is surrounding erythema.) SpO2 Interpretation: normal Oxygen Delivery: Room Air Ordered Tests: Active Orders 24 hr Category Date Time Status CULTURE,WOUND Stat Lab 06/15/18 20:27 Uncollected - Departure Time of Disposition: 20:37 Departure Disposition: Home Clinical Impression: Abscess, Cellulitis Condition: Stable Critical Care Time: No Referrals: ARDEN BATISTA [Primary Care Provider] - Additional Instructions: You have an abscess with surrounding cellulitis on her left breast. You were given Toradol 60 mg by IM in the ER. You are also given azithromycin 500 mg and doxycycline 100 mg orally in the ER. Continue with azithromycin 250 mg daily for the next 4 days. Also continue with doxycycline 100 mg 2 times a day for 10 days. Follow-up with your primary medical doctor if the condition worsens in the next 2 days. Prescriptions: Azithromycin 250 mg PO BID #4 tablet Doxycycline Hyclate 100 mg [Vibramycin 100 MG] 100 mg PO BID #20 tab
[2018-06-15] MEDS ORDERED: Vibramycin 100 MG PO ONE (20:36)
[2018-06-15] MEDS ORDERED: Zithromax 250 MG TABLET PO ONE (20:36)
[2018-06-15] MEDS ORDERED: TORAdol 30 mg Injection IM ONE (20:39)
[2018-06-15] MEDS ORDERED: TORAdol 30 mg Injection ONE (20:44)
[2018-06-15] MEDS ORDERED: Vibramycin 100 MG ONE (20:44)
[2018-06-15] MEDS ORDERED: Zithromax 250 MG TABLET ONE (20:44)
[2018-06-15 20:58] VITALS: BP 129/94
== END 2018-06-15 21:04 | disposition home or self-care (01) ==
LOC: ED 20:05
DX: N61.1 Abscess of the breast and nipple (principal)
CPT/HCPCS: 87070; 87077; 87186; 96372; 99284; J1885; A9270-GY

== ENCOUNTER 2019-03-10 20:55 | Emergency (ER) | payer BC ==
--- NOTE | 2019-03-10 21:00 | ERPHSYRPT ---
- History of Present Illness Time Seen by Provider: 03/10/19 21:00 Source: patient Exam Limitations: no limitations Physician History: 29 y/o white female smoker presents with 3 day h/o cough and associated fever. fever responds to tylenol but then rises. no urinary sx. no cp, no abd pain. 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 Associated Symptoms: cough, No abdominal pain, No chest pain, No shortness of breath Allergies/Adverse Reactions: No Known Drug Allergies Allergy (Verified 05/02/18 08:08) Hx Tetanus, Diphtheria Vaccination/Date Given: Yes Hx Influenza Vaccination/Date Given: Yes Hx Pneumococcal Vaccination/Date Given: No - Review of Systems Constitutional: Fever Eyes: No Symptoms Ears, Nose, & Throat: No Symptoms Respiratory: Cough, No Dyspnea Cardiac: No Chest Pain, No Palpitations, No Syncope Abdominal/Gastrointestinal: No Symptoms Genitourinary Symptoms: No Symptoms Musculoskeletal: No Symptoms Skin: No Symptoms Neurological: No Symptoms Psychological: No Symptoms Endocrine: No Symptoms Hematologic/Lymphatic: No Symptoms Immunological/Allergic: No Symptoms All Other Systems: Reviewed and Negative - Past Medical History Pertinent Past Medical History: Yes Neurological History: No Pertinent History ENT History: No Pertinent History Cardiac History: Arrhythmia, Hypertension Respiratory History: No Pertinent History Endocrine Medical History: No Pertinent History Musculoskeletal History: No Pertinent History GI Medical History: Other History: No Pertinent History Psycho-Social History: No Pertinent History Female Reproductive Disorders: Other Other Medical History: cysts on ovaries, tachycardia - Past Surgical History Past Surgical History: Yes Neuro Surgical History: No Pertinent History Cardiac: No Pertinent History Respiratory: No Pertinent History Gastrointestinal: Cholecystectomy Genitourinary: No Pertinent History Musculoskeletal: No Pertinent History Female Surgical History: Section Other Surgical History: pt had tonsillectomy aug 2015, EGD May 2016 - Social History Smoking Status: Current every day smoker How long have you smoked: 10 years Exposure to second hand smoke: Yes Drug Use: none Patient Lives Alone: No - Nursing Vital Signs Nursing Vital Signs: Initial Vital Signs Temperature 99.1 F 03/10/19 21:02 Pulse Rate 117 H 03/10/19 21:02 Respiratory Rate 18 03/10/19 21:02 Blood Pressure 144/91 03/10/19 21:02 O2 Sat by Pulse Oximetry 97 03/10/19 21:02 Pain Scale Pain Intensity 0 - Physical Exam General Appearance: no apparent distress, alert Eye Exam: PERRL/EOMI, eyes nml inspection ENT Exam: normal ENT inspection, hearing grossly normal, airway intact Neck Exam: normal inspection, non-tender, supple, full range of motion, trachea midline Respiratory Exam: normal breath sounds, chest non-tender, lungs clear, no respiratory distress, no accessory muscle use Cardiovascular/Chest Exam: tachycardia (mild) Gastrointestinal/Abdominal Exam: soft, non tender Pelvic Exam: not done Rectal Exam: not done Extremity Exam: non-tender, normal range of motion, normal inspection Neurologic Exam: alert, oriented x 3, cooperative, stepdown nurse II-XII nml as tested, normal mood/affect, nml cerebellar function, nml station & gait Skin Exam: normal color, warm, dry Lymphatic: No adenopathy SpO2 Interpretation: normal O2 Delivery: Room Air Ordered Tests: Active Orders 24 hr Category Date Time Status CHEST 1 VIEW (PORTABLE) Stat Exams 03/10/19 21:16 Taken HCG,QUALITATIVE URINE Stat Lab 03/10/19 21:44 Completed UA W/RFX UR CULTURE Stat Lab 03/10/19 21:44 Completed Lab/Rad Data: Laboratory Results 03/10/19 03/10/19 Range/Units 21:44 21:44 Urine Color VENUS (YELLOW) Urine Appearance SLIGHTLY CLOUDY (CLEAR) Urine pH 5.0 (5-6) Ur Specific [place] 1.027 (1.005-1.025) Urine Protein NEGATIVE (Negative) Urine Ketones NEGATIVE (NEGATIVE) Urine Blood MODERATE (0-5) Garo/ul Urine Nitrite NEGATIVE (NEGATIVE) Urine Bilirubin NEGATIVE (NEGATIVE) Urine Urobilinogen 2 (0-1) mg/dL Ur Leukocyte Esterase NEGATIVE (NEGATIVE) Urine WBC (Auto) 0-2 (0-5) /HPF Urine RBC (Auto) 6-10 (0-2) /HPF U Epithel Cells (Auto) RARE (FEW) /HPF Urine Bacteria (Auto) NONE (NEGATIVE) /HPF Urine Mucus (Auto) MANY (NEGATIVE) /HPF Urine Culture Reflexed NO (NO) Urine Glucose NEGATIVE (NEGATIVE) mg/dL Urine HCG, Qual NEGATIVE (Negative) - Progress Progress: unchanged Progress Note: 03/10/19 21:48 cxr-? mild right perihilar infiltrate Counseled pt/family regarding: diagnosis, need for follow-up, rad results - Departure Departure Disposition: Home Clinical Impression: Lung infiltrate, Fever Condition: Stable Critical Care Time: No Referrals: CARITO GILL [Primary Care Provider] - Additional Instructions: drink plenty of fluids. follow up with primary doctor for further management. continue tylenol for fever. Prescriptions: Azithromycin 250 mg [Zithromax 250 MG TABLET] 250 mg PO ZPACK #6 tablet Hydrocodone Bit/Acetaminophen [Hydrocodone-Acetaminophen Soln] 10 ml PO Q6H # 120 ml Prednisone 5 mg [Deltasone 5 mg] 5 mg PO TID #12 tablet
[2019-03-10 21:12] VITALS: O2SAT 97
[2019-03-10 21:42] LABS: Appearance SLIGHTLY CLOUDY (CLEAR); Bilirubin NEGATIVE (NEGATIVE); Blood MODERATE Ery/ul (0-5); Epithelial Cells RARE /HPF (FEW); Glucose NEGATIVE (NEGATIVE); Ketones NEGATIVE (NEGATIVE); Leukocyte Esterase NEGATIVE (NEGATIVE); Mucus MANY /HPF (NEGATIVE); Nitrite NEGATIVE (NEGATIVE); Protein,Urine Dip NEGATIVE (Negative); Specific Gravity 1.027 (1.005-1.025); Urobilinogen 2 mg/dL (0-1); WBC 0-2 /HPF (0-5)
[2019-03-10 22:05] VITALS: BP 136/94; PULSE 102
--- NOTE | 2019-03-11 16:04 | XRAY ---
Exam: AP portable chest film from 03/10/2019. Comparison: Two-view chest from 07/20/2017. Indication: 29-year-old female with fever, cough. Findings: The heart size and contour are normal. The melecio and mediastinal structures reveal no significant abnormality and appear stable. I believe there is a tiny calcified granuloma within the central right upper lobe representing no change. No air space infiltrates, passive congestion, pneumothorax, or pleural fluid is seen. No acute osseous process is seen. Surgical clips consistent with prior cholecystectomy are seen within the right upper quadrant. Impression: 1. No air space infiltrates to suggest pneumonia or other acute cardiopulmonary disease is seen. The findings appear unchanged from 07/20/2017.
== END 2019-03-10 22:10 | disposition home or self-care (01) ==
LOC: ED 20:55
DX: R91.8 Other nonspecific abnormal finding of lung field (principal); R50.9 Fever, unspecified; I10 Essential (primary) hypertension
CPT/HCPCS: 71045; 81001; 84703; 99284

== ENCOUNTER 2019-06-23 17:35 | Emergency (ER) | payer BC, OTHER ==
[2019-06-23 17:52] VITALS: BP 130/92; PULSE 94; O2SAT 100
--- NOTE | 2019-06-23 17:55 | ERPHSYRPT ---
- History of Present Illness Time Seen by Provider: 06/23/19 17:54 Source: patient Exam Limitations: no limitations Patient Subjective Stated Complaint: pt here for pain to right shoulder after lifting a pt at work today Triage Nursing Assessment: pt walked in, alert, resp easy, skin w/d/p. pain to right shoulder, pt has full range of motion to shoulder Physician History: 29 y/o right handed white female presents with injury to right shoulder. 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 Occurred: just prior to arrival Method of Injury: other (lifting and transferring pt) Quality: aching Severity of Pain-Max: mild Severity of Pain-Current: mild Extremities Pain Location: shoulder: right Modifying Factors: Improves With: movement (mild pain ) Associated Symptoms: none Allergies/Adverse Reactions: No Known Drug Allergies Allergy (Verified 06/23/19 17:52) Home Medications: No Reportable Medications [No Reported Medications] 06/23/19 [History] Hx Tetanus, Diphtheria Vaccination/Date Given: Yes Hx Influenza Vaccination/Date Given: No Hx Pneumococcal Vaccination/Date Given: No Immunizations Up to Date: Yes - Review of Systems Constitutional: No Symptoms Eyes: No Symptoms Ears, Nose, & Throat: No Symptoms Respiratory: No Symptoms Cardiac: No Symptoms Abdominal/Gastrointestinal: No Symptoms Genitourinary Symptoms: No Symptoms Musculoskeletal: Injury, Joint Pain (mild right shoulder) Skin: No Symptoms Neurological: No Symptoms Psychological: No Symptoms Endocrine: No Symptoms Hematologic/Lymphatic: No Symptoms Immunological/Allergic: No Symptoms All Other Systems: Reviewed and Negative - Past Medical History Pertinent Past Medical History: Yes Neurological History: No Pertinent History ENT History: No Pertinent History Cardiac History: Arrhythmia, Hypertension Respiratory History: No Pertinent History Endocrine Medical History: No Pertinent History Musculoskeletal History: No Pertinent History GI Medical History: Other History: No Pertinent History Psycho-Social History: No Pertinent History Female Reproductive Disorders: Other Other Medical History: cysts on ovaries, tachycardia - Past Surgical History Past Surgical History: Yes Neuro Surgical History: No Pertinent History Cardiac: No Pertinent History Respiratory: No Pertinent History Gastrointestinal: Cholecystectomy Genitourinary: No Pertinent History Musculoskeletal: No Pertinent History Female Surgical History: Section Other Surgical History: pt had tonsillectomy aug 2015, EGD May 2016 - Social History Smoking Status: Current every day smoker How long have you smoked: 10 years Exposure to second hand smoke: Yes Drug Use: none Patient Lives Alone: No - Female History Hx Last Menstrual Period: jun 09 Hx Now: No - Nursing Vital Signs Nursing Vital Signs: Initial Vital Signs Temperature 98.1 F 06/23/19 17:48 Pulse Rate 94 H 06/23/19 17:48 Respiratory Rate 16 06/23/19 17:48 Blood Pressure 130/92 06/23/19 17:48 O2 Sat by Pulse Oximetry 100 06/23/19 17:48 Pain Scale Pain Intensity 2 - Physical Exam General Appearance: no apparent distress, alert, anxiety Eyes, Ears, Nose, Throat Exam: normal ENT inspection, moist mucous membranes Neck Exam: normal inspection, non-tender, supple, full range of motion Cardiovascular/Respiratory Exam: chest non-tender Abdominal Exam: non-tender Back Exam: normal inspection, normal range of motion, No CVA tenderness, No vertebral tenderness Shoulder Exam: normal inspection, no evidence of injury, normal ROM, pain (mild) Elbow/Forearm Exam: normal inspection, non-tender, no evidence of injury, normal ROM Wrist Exam: normal inspection, non-tender, no evidence of injury, normal ROM Hand Exam: normal inspection, non-tender, no evidence of injury, normal ROM Neuro/Tendon Exam: normal sensation, normal motor functions, normal tendon functions Mental Status Exam: alert, oriented x 3, cooperative Skin Exam: normal color, warm, dry SpO2 Interpretation: normal SpO2: 100 O2 Delivery: Room Air - Course Nursing assessment & vital signs reviewed: Yes Ordered Tests: Active Orders 24 hr Category Date Time Status SHOULDER Stat Exams 06/23/19 17:55 Taken - Progress Progress: unchanged Progress Note: 06/23/19 18:30 right shoulder xray-no acute fx or dislocation Counseled pt/family regarding: diagnosis, need for follow-up, rad results - Departure Departure Disposition: Home Clinical Impression: Right shoulder strain Condition: Stable Critical Care Time: No Referrals: CARITO GILL [Primary Care Provider] - Additional Instructions: ice pack to area 3 time daily for 2 days. use tylenol and ibuprofen for pain. follow up with primary doctor for further management
--- NOTE | 2019-06-24 09:00 | XRAY ---
Indication: Pain while lifting. Comparison: June 28, 2014. 3 views of the right shoulder demonstrates stable right apical calcified granuloma. No new/acute bony, articular, or soft tissue abnormalities.
== END 2019-06-23 18:41 | disposition home or self-care (01) ==
LOC: ED 17:35
DX: S46.911A Strain of unspecified muscle, fascia and tendon at shoulder and upper arm level, right arm, initial encounter (principal); X50.0XXA Overexertion from strenuous movement or load, initial encounter; X50.9XXA Other and unspecified overexertion or strenuous movements or postures, initial encounter; Y93.89 Activity, other specified; Y92.89 Other specified places as the place of occurrence of the external cause; Y99.0 Civilian activity done for income or pay
CPT/HCPCS: 73030; 99283

== ENCOUNTER 2020-07-20 21:01 | Emergency (ER) | payer BC, MEDICAID ==
[2020-07-20 21:21] VITALS: O2SAT 99
--- NOTE | 2020-07-20 21:39 | ERPHSYRPT ---
- History of Present Illness Time Seen by Provider: 07/20/20 21:25 Source: patient Exam Limitations: no limitations Patient Subjective Stated Complaint: pt states she has a pilonidal cyst for approx last 4 days and has had increased pain today Triage Nursing Assessment: pt alert and oriented, answers questions approp. pt ambulatory with steady gait noted. respirationsnonlabored with lungs cta. skin warm and dry. sacral area tender with warmth noted. Physician History: This is a 30-year-old white female who has tenderness in an area between her buttocks where she has had 4 other pilonidal cysts. Each 1 of those sites was an obvious cyst requiring incision and drainage. She has had tenderness in this area for 4 days. She has not had fevers. She has been using heating pad to the site. She also states she is been using boil ease. She states it has not come to a head but there is tenderness present. Quality: painful Severity: mild Location: other (Lower midline sacral region) Associated Symptoms: denies symptoms Allergies/Adverse Reactions: No Known Drug Allergies Allergy (Verified 07/20/20 21:22) Hx Tetanus, Diphtheria Vaccination/Date Given: Yes Hx Influenza Vaccination/Date Given: No Hx Pneumococcal Vaccination/Date Given: No Immunizations Up to Date: Yes Travel Risk - International Travel Have you traveled outside of the country in past 3 weeks: No - Coronavirus Screening Are you exhibiting any of the following symptoms?: No Close contact with a COVID-19 positive Pt in past 14-21 Days: No - Review of Systems Constitutional: No Symptoms Eyes: No Symptoms Ears, Nose, & Throat: No Symptoms Respiratory: No Symptoms Cardiac: No Symptoms Abdominal/Gastrointestinal: No Symptoms Genitourinary Symptoms: No Symptoms Musculoskeletal: No Symptoms Skin: Other (Tenderness lower midline sacral region) Neurological: No Symptoms Psychological: No Symptoms Endocrine: No Symptoms Hematologic/Lymphatic: No Symptoms Immunological/Allergic: No Symptoms All Other Systems: Reviewed and Negative - Past Medical History Pertinent Past Medical History: Yes Neurological History: No Pertinent History ENT History: No Pertinent History Cardiac History: Arrhythmia, Hypertension Respiratory History: No Pertinent History Endocrine Medical History: No Pertinent History Musculoskeletal History: No Pertinent History GI Medical History: Other History: No Pertinent History Psycho-Social History: No Pertinent History Female Reproductive Disorders: Other Other Medical History: cysts on ovaries, tachycardia - Past Surgical History Past Surgical History: Yes Neuro Surgical History: No Pertinent History Cardiac: No Pertinent History Respiratory: No Pertinent History Gastrointestinal: Cholecystectomy Genitourinary: No Pertinent History Musculoskeletal: No Pertinent History Female Surgical History: Section Other Surgical History: pt had tonsillectomy aug 2015, EGD May 2016 - Social History Smoking Status: Former smoker How long have you smoked: 10 years Exposure to second hand smoke: Yes Drug Use: none Patient Lives Alone: No - Female History Hx Last Menstrual Period: 3 weeks Hx Now: No - Nursing Vital Signs Nursing Vital Signs: Initial Vital Signs Temperature 98.9 F 07/20/20 21:11 Pulse Rate 108 H 07/20/20 21:11 Respiratory Rate 18 07/20/20 21:11 Blood Pressure 134/86 07/20/20 21:11 O2 Sat by Pulse Oximetry 99 07/20/20 21:11 Pain Scale Pain Intensity 5 - Physical Exam General Appearance: no apparent distress, alert, anxiety Eye Exam: PERRL/EOMI, eyes nml inspection Ears, Nose, Throat Exam: normal ENT inspection, moist mucous membranes Neck Exam: normal inspection, non-tender, supple, full range of motion Respiratory Exam: airway intact, No chest tenderness, No respiratory distress Gastrointestinal/Abdomen Exam: No tenderness Pelvic Exam: not done Rectal Exam: tenderness (Tenderness to palpation in the area of prior pilonidal cyst. In the midline caudal sacral region. There is no redness. There is no o bvious abscess present. There is nothing to drain) Extremity Exam: normal inspection, normal range of motion, pelvis stable Neurologic Exam: alert Skin Exam: normal color, warm, dry, other (Above) Lymphatic Exam: No adenopathy SpO2 Interpretation: normal SpO2: 99 O2 Delivery: Room Air - Course Nursing assessment & vital signs reviewed: Yes - Progress Progress: unchanged Counseled pt/family regarding: diagnosis, need for follow-up, rad results - Departure Departure Disposition: Home Clinical Impression: Localized tenderness of skin Condition: Stable Critical Care Time: No Referrals: CARITO GILL [Primary Care Provider] - Additional Instructions: Sitz bath with Epson salt 2 times a day. Heating pad, not directly on the skin, at low to medium setting. May use [id number] boilease product. Return to emergency department if there is an actual abscess to drain. Take medication as prescribed. Prescriptions: Smz/Tmp Ds Tablet [Bactrim Ds Tablet] 1 udtab PO BID #14 tablet
[2020-07-20] MEDS ORDERED: BACTRIM DS TABLET PO STA (21:41)
[2020-07-20] MEDS ORDERED: BACTRIM DS TABLET PO ONE (21:46)
[2020-07-20 22:02] VITALS: BP 128/75; PULSE 89
== END 2020-07-20 22:00 | disposition home or self-care (01) ==
LOC: ED 21:01
DX: M53.3 Sacrococcygeal disorders, not elsewhere classified (principal); I10 Essential (primary) hypertension
CPT/HCPCS: 99283; A9270-GY

== ENCOUNTER 2020-08-22 15:31 | Emergency (ER) | payer MEDICAID ==
[2020-08-22] MEDS ORDERED: TORAdol 30 mg Injection IV ONE (16:52)
[2020-08-22] MEDS ORDERED: Compazine 10 MG/2 ML IV ONE (16:52)
[2020-08-22] MEDS ORDERED: BENADRYL 50 MG/ML IV ONE (16:53)
[2020-08-22] MEDS ORDERED: Sodium Chloride 0.9% 1000 ML 1,000 ML ONE (16:55)
[2020-08-22] MEDS ORDERED: Compazine 10 MG/2 ML ONE (16:55)
[2020-08-22] MEDS ORDERED: Sodium Chloride 0.9% 1000 ML 1,000 ML IV SCH (17:00)
[2020-08-22] MEDS ORDERED: TORAdol 30 mg Injection ONE (17:07)
[2020-08-22] MEDS ORDERED: BENADRYL 50 MG/ML ONE (17:08)
[2020-08-22 18:15] VITALS: BP 130/93; PULSE 67; O2SAT 97
--- NOTE | 2020-08-22 18:36 | ERPHSYRPT ---
- History of Present Illness Time Seen by Provider: 08/22/20 16:30 Source: patient Exam Limitations: no limitations Patient Subjective Stated Complaint: "I have had a migraine headache since last night. Became dizzy and headache not going away" "I have a history of migraine headaches. " Triage Nursing Assessment: Aaox3, walked in, color good, resp easy, c/o left sided headache and stiff neck. Denies injury, states history of migraine headaches. Denies blurry vision or visual disturbances. States has taken 6 ibuprofen since 0600 this am with no relief. Physician History: Patient is a 30-year-old female presents to our ED with complaints of a migraine headache x1 day. Patient states she has a history of migraines. Patient states symptoms started yesterday. Headache gradually worsened. Not thunderclap heada sallie. She felt somewhat dizzy and her neck felt stiff. However her migraine was not bothersome. Today the headache is worse. Headache is left-sided. No associated fever. No nausea or vomiting. No head trauma. Mild photophobia. No meningeal signs. Symptoms are mild to moderate in intensity. No specific worsening or improving factors. Ibuprofen earlier today for pain control. Ibuprofen offered little relief. Voices no other complaints or concerns at this time. Timing/Duration: yesterday Severity: moderate Modifying Factors: Improves With: nothing Associated Symptoms: diaphoresis Allergies/Adverse Reactions: No Known Drug Allergies Allergy (Verified 07/20/20 21:22) Hx Tetanus, Diphtheria Vaccination/Date Given: Yes Hx Influenza Vaccination/Date Given: No Hx Pneumococcal Vaccination/Date Given: No Travel Risk - International Travel Have you traveled outside of the country in past 3 weeks: No - Coronavirus Screening Are you exhibiting any of the following symptoms?: No Close contact with a COVID-19 positive Pt in past 14-21 Days: No - Review of Systems Constitutional: No Symptoms, No Fever, No Chills Eyes: No Symptoms Ears, Nose, & Throat: No Symptoms Respiratory: No Symptoms, No Cough, No Dyspnea Cardiac: No Symptoms, No Chest Pain, No Edema, No Syncope Abdominal/Gastrointestinal: No Symptoms, No Abdominal Pain, No Nausea, No Vomiting, No Diarrhea Genitourinary Symptoms: No Symptoms, No Dysuria Musculoskeletal: No Symptoms, No Back Pain, No Neck Pain Skin: No Symptoms, No Rash Neurological: No Symptoms, No Dizziness, No Focal Weakness, No Sensory Changes Psychological: No Symptoms Endocrine: No Symptoms Hematologic/Lymphatic: No Symptoms Immunological/Allergic: No Symptoms All Other Systems: Reviewed and Negative - Past Medical History Pertinent Past Medical History: Yes Neurological History: No Pertinent History ENT History: No Pertinent History Cardiac History: Arrhythmia, Hypertension Respiratory History: No Pertinent History Endocrine Medical History: No Pertinent History Musculoskeletal History: No Pertinent History GI Medical History: Other History: No Pertinent History Psycho-Social History: No Pertinent History Female Reproductive Disorders: Other Other Medical History: cysts on ovaries, tachycardia - Past Surgical History Past Surgical History: Yes Neuro Surgical History: No Pertinent History Cardiac: No Pertinent History Respiratory: No Pertinent History Gastrointestinal: Cholecystectomy Genitourinary: No Pertinent History Musculoskeletal: No Pertinent History Female Surgical History: Section Other Surgical History: pt had tonsillectomy aug 2015, EGD May 2016 - Social History Smoking Status: Never smoker How long have you smoked: 10 years Exposure to second hand smoke: No Drug Use: none Patient Lives Alone: No - Female History Hx Now: No - Nursing Vital Signs Nursing Vital Signs: Initial Vital Signs Temperature 98.2 F 08/22/20 16:22 Pulse Rate 84 08/22/20 16:22 Respiratory Rate 18 08/22/20 16:22 Blood Pressure 131/94 08/22/20 16:22 O2 Sat by Pulse Oximetry 99 08/22/20 16:22 Pain Scale Pain Intensity 4 - Physical Exam General Appearance: no apparent distress, alert Eye Exam: PERRL/EOMI, eyes nml inspection, No scleral icterus, No pale conjunctivae Ears, Nose, Throat Exam: normal ENT inspection, TMs normal, pharynx normal, moist mucous membranes Neck Exam: normal inspection, non-tender, supple, full range of motion Respiratory Exam: normal breath sounds, lungs clear, No respiratory distress Cardiovascular Exam: regular rate/rhythm, normal heart sounds, normal peripheral pulses Gastrointestinal/Abdomen Exam: soft, normal bowel sounds, No tenderness, No mass Back Exam: normal inspection, normal range of motion, No CVA tenderness, No vertebral tenderness Extremity Exam: normal inspection, normal range of motion, pelvis stable Neurologic Exam: alert, oriented x 3, cooperative, normal mood/affect, nml cerebellar function, nml station & gait, sensation nml, No motor deficits, No sensory deficit, No disoriented, No confusion, No uncooperative, No intoxicated appearance, No motor weakness, No facial droop, No slurred speech, No aphasia, No abnormal gait, No abnormal cerebellar tests, No abnormal 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 Skin Exam: normal color, warm, dry, No rash Lymphatic Exam: No adenopathy SpO2 Interpretation: normal SpO2: 97 O2 Delivery: Room Air - Course Nursing assessment & vital signs reviewed: Yes Ordered Tests: Active Orders 24 hr Category Date Time Status IV Insertion STAT Care 08/22/20 16:50 Completed HCG,QUALITATIVE URINE Stat Lab 08/22/20 18:14 Completed UA W/RFX UR CULTURE Stat Lab 08/22/20 18:14 Completed Medication Summary Discontinued Medications Generic Name Dose Route Start Last Admin Trade Name Freq PRN Reason Stop Dose Admin Diphenhydramine HCl 25 mg 08/22/20 16:53 08/22/20 17:10 Benadryl 50 Mg/Ml IV 08/22/20 16:54 25 mg STAT ONE Administration Diphenhydramine HCl Confirm 08/22/20 17:08 Benadryl 50 Mg/Ml Administered 08/22/20 17:09 Dose 50 mg .ROUTE .STK-MED ONE Sodium Chloride 1,000 mls @ 100 mls/hr 08/22/20 17:00 08/22/20 18:52 Sodium Chloride 0.9% 1000 Ml IV 09/21/20 16:59 Infused .Q10H NEV[place] Infusion Sodium Chloride Confirm 08/22/20 16:55 Sodium Chloride 0.9% 1000 Ml Administered 08/22/20 16:56 Dose 1,000 mls @ ud .ROUTE .STK-MED ONE Ketorolac Tromethamine 30 mg 08/22/20 16:52 08/22/20 17:10 Toradol 30 Mg Injection IV 08/22/20 16:53 30 mg STAT ONE Administration Ketorolac Tromethamine Confirm 08/22/20 17:07 Toradol 30 Mg Injection Administered 08/22/20 17:08 Dose 30 mg .ROUTE .STK-MED ONE Prochlorperazine Edisylate 10 mg 08/22/20 16:52 08/22/20 16:58 Compazine 10 Mg/2 Ml IV 08/22/20 16:53 10 mg STAT ONE Administration Prochlorperazine Edisylate Confirm 08/22/20 16:55 Compazine 10 Mg/2 Ml Administered 08/22/20 16:56 Dose 10 mg .ROUTE .STK-MED ONE Lab/Rad Data: Laboratory Results 08/22/20 08/22/20 Range/Units 18:14 18:14 Urine Color YELLOW (YELLOW) Urine Appearance CLOUDY (CLEAR) Urine pH 7.0 (5-6) Ur Specific Seymour 1.012 (1.005-1.025) Urine Protein NEGATIVE (Negative) Urine Ketones NEGATIVE (NEGATIVE) Urine Blood SMALL (0-5) Garo/ul Urine Nitrite NEGATIVE (NEGATIVE) Urine Bilirubin NEGATIVE (NEGATIVE) Urine Urobilinogen NEGATIVE (0-1) mg/dL Ur Leukocyte Esterase NEGATIVE (NEGATIVE) Urine WBC (Auto) 0-2 (0-5) /HPF Urine RBC (Auto) 0-2 (0-2) /HPF U Epithel Cells (Auto) RARE (FEW) /HPF Urine Bacteria (Auto) RARE (NEGATIVE) /HPF Amorphous Crystals FEW (NEGATIVE) /HPF Urine Culture Reflexed NO (NO) Urine Glucose NEGATIVE (NEGATIVE) mg/dL Urine HCG, Qual NEGATIVE (Negative) - Progress Progress: improved Progress Note: 08/22/20 19:48 Patient reassessed. Headache much improved. Not completely resolved. Patient has mild neck stiffness. Dr. Davis advised a lumbar puncture. Patient adamantly declined. Patient states not necessary. Risks and benefits of the lumbar puncture were discussed. 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 Patient understands that declining a lumbar puncture can result in delayed diagnosis, worsening of symptoms, increased risk morbidity, mortality, short and long-term disability including . Patient understand that if she changes her mind she can return to our ED at any time for lumbar puncture. Patient agrees to follow-up with her primary care doctor within 48 hours for reevaluation. Counseled pt/family regarding: lab results, diagnosis, need for follow-up, rad results - Departure Departure Disposition: Home Clinical Impression: Migraine Condition: Stable Critical Care Time: No Referrals: DOCTOR,NO FAMILY [Primary Care Provider] - SHIRA SEGOVIA MD [ACTIVE STAFF] - Instructions: Migraines in Adults Additional Instructions: Discharge/Care Plan DANIELLE GOETZ was seen on 08/22/20 in the Emergency Room. The patient was counseled regarding Diagnosis,Lab results, Imaging studies, need for follow up and when to return to the Emergency Room. Prescriptions given: Discharge Note I have spoken with the patient and/or caregivers. I have explained the patient's condition, diagnosis and treatment plan based on the information available to me at this time. I have answered the patient's and/or caregiver's questions and addressed any concerns. The patient and/or caregivers have as good understanding of the patient's diagnosis, condition and treatment plan as can be expected at this point. The vital signs have been stable. The patient's condition is stable and appropriate for discharge from the emergency department. The patient will pursue further outpatient evaluation with the primary care physician or other designated or consulting physician as outlined in the discharge instructions. The patient and/or caregivers are agreeable to this plan of care and follow-up instructions have been explained in detail. The patient and/or caregivers have received these instruction. The patient/and or caregivers are aware that any significant change in condition or worsening of symptoms should prompt an immediate return to this or the closest emergency department or call 911.
[2020-08-22 18:45] LABS: Amourphous Crystal FEW /HPF (NEGATIVE); Appearance CLOUDY (CLEAR); Bacteria RARE /HPF (NEGATIVE); Bilirubin NEGATIVE (NEGATIVE); Blood SMALL Ery/ul (0-5); Epithelial Cells RARE /HPF (FEW); Glucose NEGATIVE (NEGATIVE); Ketones NEGATIVE (NEGATIVE); Leukocyte Esterase NEGATIVE (NEGATIVE); Nitrite NEGATIVE (NEGATIVE); Protein,Urine Dip NEGATIVE (Negative); RBC 0-2 /HPF (0-2); Specific Gravity 1.012 (1.005-1.025); Urobilinogen NEGATIVE mg/dL (0-1); WBC 0-2 /HPF (0-5)
== END 2020-08-22 18:53 | disposition home or self-care (01) ==
LOC: ED 15:31
DX: G43.909 Migraine, unspecified, not intractable, without status migrainosus (principal)
CPT/HCPCS: 36000; 81001; 84703; 96360; 96374; 96375; 99284; J1200; J1885

== ENCOUNTER 2021-04-16 14:39 | Emergency (ER) | payer SELFPAY ==
[2021-04-16] MEDS ORDERED: XYLOCAINE VISCOUS 2% 20 ML CUP PO ONE (15:17)
--- NOTE | 2021-04-16 15:17 | ERPHSYRPT ---
- History of Present Illness Time Seen by Provider: 04/16/21 15:12 Source: patient Patient Subjective Stated Complaint: pt reports top right, back molar is infected, states she has been dealing with it since saturday. pt reports taking tylenol for pain. Triage Nursing Assessment: pt is aox3, pupils perrl, afebrile, resps easy and non labored, cap refill < 3 seconds, radial pulses strong and equal, pt skin pink warm dry. Physician History: Patient is a 31-year-old white female presents with a toothache. Since Saturday or this is the third day the tooth involved is the right maxillary molar there is swelling of the jaw. Timing/Duration: gradual onset Severity: moderate ENT Location: mouth Prearrival Treatment: no prearrival treatment Allergies/Adverse Reactions: No Known Drug Allergies Allergy (Verified 04/16/21 14:50) Hx Tetanus, Diphtheria Vaccination/Date Given: Yes Hx Influenza Vaccination/Date Given: No Hx Pneumococcal Vaccination/Date Given: No Immunizations Up to Date: Yes Travel Risk - International Travel Have you traveled outside of the country in past 3 weeks: No - Coronavirus Screening Are you exhibiting any of the following symptoms?: No Close contact with a COVID-19 positive Pt in past 14-21 Days: No - Vaccine Status Have you recieved a Covid-19 vaccination: No - Review of Systems Constitutional: No Fever, No Chills Eyes: No Symptoms Ears, Nose, & Throat: Loose Teeth, Other (Dental pain) Respiratory: No Cough, No Dyspnea Cardiac: No Chest Pain, No Edema, No Syncope Abdominal/Gastrointestinal: No Abdominal Pain, No Nausea, No Vomiting, No Diarrhea Genitourinary Symptoms: No Dysuria Musculoskeletal: No Back Pain, No Neck Pain Skin: No Rash Neurological: No Dizziness, No Focal Weakness, No Sensory Changes Psychological: No Symptoms Endocrine: No Symptoms All Other Systems: Reviewed and Negative - Past Medical History Pertinent Past Medical History: Yes Neurological History: No Pertinent History ENT History: No Pertinent History Cardiac History: Arrhythmia, Hypertension Respiratory History: No Pertinent History Endocrine Medical History: No Pertinent History Musculoskeletal History: No Pertinent History GI Medical History: Other History: No Pertinent History Psycho-Social History: No Pertinent History Female Reproductive Disorders: Other Other Medical History: cysts on ovaries, tachycardia - Past Surgical History Past Surgical History: Yes Neuro Surgical History: No Pertinent History Cardiac: No Pertinent History Respiratory: No Pertinent History Gastrointestinal: Cholecystectomy Genitourinary: No Pertinent History Musculoskeletal: No Pertinent History Female Surgical History: Section Other Surgical History: pt had tonsillectomy aug 2015, EGD May 2016 - Social History Smoking Status: Never smoker How long have you smoked: 10 years Exposure to second hand smoke: No Drug Use: none Patient Lives Alone: No - Female History Hx Last Menstrual Period: 04/02/21 Hx Now: No (possible) - Nursing Vital Signs Nursing Vital Signs: Initial Vital Signs Temperature 98.2 F 04/16/21 14:42 Pulse Rate 73 04/16/21 14:42 Respiratory Rate 20 04/16/21 14:42 Blood Pressure 176/102 04/16/21 14:42 O2 Sat by Pulse Oximetry 97 04/16/21 14:42 Pain Scale Pain Intensity 9 - Physical Exam General Appearance: mild distress, alert Eye Exam: bilateral eye: PERRL, EOMI Nasal Exam: normal inspection Throat Exam: pharynx normal, dental tenderness (Maxillary molar with swelling), moist mucus membranes, No tonsillar exudate Neck Exam: supple Cardiovascular/Respiratory Exam: normal breath sounds, regular rate/rhythm Abdominal Exam: non-tender, soft Neurologic Exam: alert, oriented x 3, sensation nml, No motor deficits Skin Exam: normal color, warm, dry SpO2: 97 - Course Nursing assessment & vital signs reviewed: Yes Ordered Tests: Medication Summary Generic Name Dose Route Start Last Admin Trade Name Richardq PRN Reason Stop Dose Admin Lidocaine HCl 20 ml 04/16/21 15:17 Xylocaine Viscous 2% 20 Ml Cup PO 04/16/21 15:18 STAT ONE - Progress Progress: unchanged - Departure Departure Disposition: Home Clinical Impression: Dental abscess Condition: Stable Critical Care Time: No Referrals: DOCTOR,NO FAMILY [Primary Care Provider] - Instructions: Tooth Abscess (DC) Prescriptions: clindamycin HCL [Cleocin HCl] 300 mg PO TID 7 Days #21 cap
[2021-04-16] MEDS ORDERED: XYLOCAINE HCl Viscous ONE (15:20)
[2021-04-16 15:35] VITALS: BP 176/102
[2021-04-16 16:05] VITALS: PULSE 84; O2SAT 100
== END 2021-04-16 15:30 | disposition home or self-care (01) ==
LOC: ED 14:39
DX: K04.7 Periapical abscess without sinus (principal)
CPT/HCPCS: 99283; A9270-GY

== ENCOUNTER 2021-05-11 11:53 | Emergency (ER) | payer OTHER ==
--- NOTE | 2021-05-11 12:03 | ERPHSYRPT ---
- History of Present Illness Time Seen by Provider: 05/11/21 12:03 Historian: patient Exam Limitations: no limitations Physician History: This is a 31-year-old obese white female who has a history of polycystic ovary syndrome and a history of elevated liver enzymes, arrhythmias and hypertension and presents with a 1 week history of right-sided abdominal pain primarily right upper quadrant that has been constant dull ache with intermittent shooting sharp pains caudally on the right side. Patient denies nausea, vomiting and diarrhea. Patient is status post section and status post cholecystectomy. Early this morning, the pain worsened with a sharp pain that was present. Now it is intermittent sharp severe pains with an underlying dull ache. Patient denies chest pain. She denies shortness of breath. She denies fever and she denies chills. Patient is refusing any type of narcotic or pain medications at this time. Timing/Duration: week(s) (1), worse Abdominal Pain Onset Location: RUQ, RLQ Pain Radiation: RUQ, RLQ Severity of Pain-Max: moderate Severity of Pain-Current: mild (To moderate) Modifying Factors: Improves With: nothing Associated Symptoms: denies symptoms Previous symptoms: no prior history Allergies/Adverse Reactions: No Known Drug Allergies Allergy (Verified 05/11/21 12:21) Home Medications: No Reportable Medications [No Reported Medications] 05/11/21 [History] Hx Tetanus, Diphtheria Vaccination/Date Given: Yes Hx Influenza Vaccination/Date Given: No Hx Pneumococcal Vaccination/Date Given: No Travel Risk - International Travel Have you traveled outside of the country in past 3 weeks: No - Coronavirus Screening Are you exhibiting any of the following symptoms?: No Close contact with a COVID-19 positive Pt in past 14-21 Days: No - Vaccine Status Have you recieved a Covid-19 vaccination: No - Review of Systems Constitutional: No Symptoms Eyes: No Symptoms Ears, Nose, & Throat: No Symptoms Respiratory: No Symptoms Cardiac: No Symptoms Abdominal/Gastrointestinal: Abdominal Pain Genitourinary Symptoms: No Symptoms Musculoskeletal: No Symptoms Skin: No Symptoms Neurological: No Symptoms Psychological: No Symptoms Endocrine: No Symptoms Hematologic/Lymphatic: No Symptoms Immunological/Allergic: No Symptoms All Other Systems: Reviewed and Negative - Past Medical History Pertinent Past Medical History: Yes Neurological History: No Pertinent History ENT History: No Pertinent History Cardiac History: Arrhythmia, Hypertension Respiratory History: No Pertinent History Endocrine Medical History: No Pertinent History Musculoskeletal History: No Pertinent History GI Medical History: Other History: No Pertinent History Psycho-Social History: No Pertinent History Female Reproductive Disorders: Other Other Medical History: cysts on ovaries, tachycardia - Past Surgical History Past Surgical History: Yes Neuro Surgical History: No Pertinent History Cardiac: No Pertinent History Respiratory: No Pertinent History Gastrointestinal: Cholecystectomy Genitourinary: No Pertinent History Musculoskeletal: No Pertinent History Female Surgical History: Section Other Surgical History: pt had tonsillectomy aug 2015, EGD May 2016 - Social History Smoking Status: Never smoker How long have you smoked: 10 years Exposure to second hand smoke: No Drug Use: none Patient Lives Alone: No - Nursing Vital Signs Nursing Vital Signs: Initial Vital Signs Temperature 98.6 F 05/11/21 12:09 Pulse Rate 93 H 05/11/21 12:09 Blood Pressure 124/90 05/11/21 12:09 O2 Sat by Pulse Oximetry 99 05/11/21 12:09 Pain Scale Pain Intensity 4 - Physical Exam General Appearance: no apparent distress, alert, anxiety, obese Eye Exam: PERRL/EOMI, eyes nml inspection Ears, Nose, Throat Exam: normal ENT inspection, moist mucous membranes Neck Exam: normal inspection, non-tender, supple, full range of motion Respiratory Exam: normal breath sounds, lungs clear, airway intact, No chest tenderness, No respiratory distress Cardiovascular Exam: regular rate/rhythm, normal heart sounds, normal peripheral pulses Gastrointestinal/Abdomen Exam: soft, normal bowel sounds, tenderness (Mild tenderness to palpation right upper quadrant and right side of her abdomen.), guarding (Mild in the same area), No rebound Pelvic Exam: not done Rectal Exam: not done Back Exam: normal inspection, normal range of motion, No CVA tenderness Extremity Exam: normal inspection, normal range of motion Neurologic Exam: alert, oriented x 3, cooperative, 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 II-XII nml as tested, normal mood/affect, nml cerebellar function, nml station & gait, sensation nml Skin Exam: normal color, warm, dry Lymphatic Exam: No adenopathy SpO2 Interpretation: normal O2 Delivery: Room Air - Course Nursing assessment & vital signs reviewed: Yes Ordered Tests: Active Orders 24 hr Category Date Time Status IV Insertion STAT Care 05/11/21 12:32 Active ABDOMEN AND PELVIS W/0 CONTRAS [CT] Stat Exams 05/11/21 12:32 Completed AMYLASE Stat Lab 05/11/21 12:35 Completed CBC W DIFF Stat Lab 05/11/21 12:35 Completed CMP Stat Lab 05/11/21 12:35 Completed HCG,QUALITATIVE URINE Stat Lab 05/11/21 12:35 Completed LIPASE Stat Lab 05/11/21 12:35 Completed Lactic Acid Stat Lab 05/11/21 12:45 Completed UA W/RFX UR CULTURE Stat Lab 05/11/21 12:35 Completed Lab/Rad Data: Laboratory Result Diagrams 05/11/21 12:35 05/11/21 12:35 Laboratory Results 05/11/21 05/11/21 05/11/21 Range/Units 12:45 12:35 12:35 WBC 6.9 (4.0-10.5) K/mm3 RBC 4.39 (4.1-5.4) M/mm3 Hgb 13.3 (12.0-16.0) gm/dl Hct 41.4 (35-47) % MCV 94.3 (78-100) fl MCH 30.3 (26-32) pg MCHC 32.1 (32-36) g/dl RDW 11.9 (11.5-14.0) % Plt Count 170 (150-450) K/mm3 MPV 10.0 (7.5-11.0) fl Gran % 59.0 (36.0-66.0) % Eos # (Auto) 0.06 (0-0.5) Absolute Lymphs (auto) 2.24 (1.0-4.6) Absolute Monos (auto) 0.52 (0.0-1.3) Lymphocytes % 32.3 (24.0-44.0) % Monocytes % 7.5 (0.0-12.0) % Eosinophils % 0.9 (0.00-5.0) % Basophils % 0.3 (0.0-0.4) % Absolute Granulocytes 4.10 (1.4-6.9) Basophils # 0.02 (0-0.4) Sodium 139 (137-145) mmol/L Potassium 4.2 (3.5-5.1) mmol/L Chloride 101 (98-107) mmol/L Carbon Dioxide 27 (22-30) mmol/L Anion Gap 14.9 (5-15) MEQ/L BUN 13 (7-17) mg/dL Creatinine 0.90 (0.52-1.04) mg/dL Estimated GFR > 60.0 ML/MIN Glucose 88 (74-106) mg/dL Lactic Acid 0.9 (0.4-2.0) Calcium 9.6 (8.4-10.2) mg/dL Total Bilirubin 0.60 (0.2-1.3) mg/dL AST 47 H (14-36) U/L ALT 80 H (0-35) U/L Alkaline Phosphatase 92 (38-126) U/L Serum Total Protein 7.8 (6.3-8.2) g/dL Albumin 4.7 (3.5-5.0) g/dL Amylase 93 (30-110) U/L Lipase 139 (23-300) U/L Urine Color (YELLOW) Urine Appearance (CLEAR) Urine pH (5-6) Ur Specific [place] (1.005-1.025) Urine Protein (Negative) Urine Ketones (NEGATIVE) Urine Blood (0-5) Garo/ul Urine Nitrite (NEGATIVE) Urine Bilirubin (NEGATIVE) Urine Urobilinogen (0-1) mg/dL Ur Leukocyte Esterase (NEGATIVE) Urine WBC (Auto) (0-5) /HPF Urine RBC (Auto) (0-2) /HPF U Epithel Cells (Auto) (FEW) /HPF Urine Bacteria (Auto) (NEGATIVE) /HPF Urine Mucus (Auto) (NEGATIVE) /HPF Urine Culture Reflexed (NO) Urine Glucose (NEGATIVE) mg/dL Urine HCG, Qual (Negative) 05/11/21 05/11/21 Range/Units 12:35 12:35 WBC (4.0-10.5) K/mm3 RBC (4.1-5.4) M/mm3 Hgb (12.0-16.0) gm/dl Hct (35-47) % MCV (78-100) fl MCH (26-32) pg MCHC (32-36) g/dl RDW (11.5-14.0) % Plt Count (150-450) K/mm3 MPV (7.5-11.0) fl Gran % (36.0-66.0) % Eos # (Auto) (0-0.5) Absolute Lymphs (auto) (1.0-4.6) Absolute Monos (auto) (0.0-1.3) Lymphocytes % (24.0-44.0) % Monocytes % (0.0-12.0) % Eosinophils % (0.00-5.0) % Basophils % (0.0-0.4) % Absolute Granulocytes (1.4-6.9) Basophils # (0-0.4) Sodium (137-145) mmol/L Potassium (3.5-5.1) mmol/L Chloride (98-107) mmol/L Carbon Dioxide (22-30) mmol/L Anion Gap (5-15) MEQ/L BUN (7-17) mg/dL Creatinine (0.52-1.04) mg/dL Estimated GFR ML/MIN Glucose (74-106) mg/dL Lactic Acid (0.4-2.0) Calcium (8.4-10.2) mg/dL Total Bilirubin (0.2-1.3) mg/dL AST (14-36) U/L ALT (0-35) U/L Alkaline Phosphatase (38-126) U/L Serum Total Protein (6.3-8.2) g/dL Albumin (3.5-5.0) g/dL Amylase (30-110) U/L Lipase (23-300) U/L Urine Color YELLOW (YELLOW) Urine Appearance CLOUDY (CLEAR) Urine pH 8.0 (5-6) Ur Specific [place] 1.015 (1.005-1.025) Urine Protein NEGATIVE (Negative) Urine Ketones NEGATIVE (NEGATIVE) Urine Blood NEGATIVE (0-5) Garo/ul Urine Nitrite NEGATIVE (NEGATIVE) Urine Bilirubin NEGATIVE (NEGATIVE) Urine Urobilinogen NEGATIVE (0-1) mg/dL Ur Leukocyte Esterase NEGATIVE (NEGATIVE) Urine WBC (Auto) NONE (0-5) /HPF Urine RBC (Auto) 0-2 (0-2) /HPF U Epithel Cells (Auto) RARE (FEW) /HPF Urine Bacteria (Auto) NONE (NEGATIVE) /HPF Urine Mucus (Auto) SLIGHT (NEGATIVE) /HPF Urine Culture Reflexed NO (NO) Urine Glucose NEGATIVE (NEGATIVE) mg/dL Urine HCG, Qual NEGATIVE (Negative) - Progress Progress: unchanged Progress Note: 05/11/21 13:28 CAT scan of the abdomen pelvis reveals no evidence of any acute intra-abdominal or intrapelvic process or pathology. The appendix is seen and it is normal. Counseled pt/family regarding: lab results, diagnosis, need for follow-up, rad results - Departure Departure Disposition: Home Clinical Impression: Abdominal pain Condition: Stable Critical Care Time: No Referrals: DOCTOR,NO FAMILY [Primary Care Provider] - Additional Instructions: If not allergic and there is no contraindication, use Tylenol and ibuprofen for pain control. Follow-up with your primary care physician for further management.
[2021-05-11 12:21] VITALS: BP 124/90; O2SAT 99
[2021-05-11 12:41] LABS: BASOPHIL % 0.3 % (0.0-0.4); Basophil (Absolute #) 0.02 (0-0.4); Eosinophil % 0.9 % (0.00-5.0); Eosinophil (Absolute #) 0.06 (0-0.5); Hematocrit 41.4 % (35-47); Hemoglobin 13.3 gm/dl (12.0-16.0); Lymphocyte (Absolute #) 2.24 (1.0-4.6); Lymphocytes % 32.3 % (24.0-44.0); Mean Cell Volume 94.3 fl (78-100); Mean Corpuscular Hemoglobin 30.3 pg (26-32); Mean Corpuscular Hgb Concent. 32.1 g/dl (32-36); Monocyte (Absolute #) 0.52 (0.0-1.3); Monocytes % 7.5 % (0.0-12.0); Platelet Count 170 K/mm3 (150-450); Red Blood Count 4.39 M/mm3 (4.1-5.4); Red Cell Distribution Width 11.9 % (11.5-14.0); White Blood Count 6.9 K/mm3 (4.0-10.5)
[2021-05-11 12:46] LABS: Appearance CLOUDY (CLEAR); Bilirubin NEGATIVE (NEGATIVE); Blood NEGATIVE Ery/ul (0-5); Epithelial Cells RARE /HPF (FEW); Glucose NEGATIVE (NEGATIVE); Ketones NEGATIVE (NEGATIVE); Leukocyte Esterase NEGATIVE (NEGATIVE); Mucus SLIGHT /HPF (NEGATIVE); Nitrite NEGATIVE (NEGATIVE); Protein,Urine Dip NEGATIVE (Negative); RBC 0-2 /HPF (0-2); Specific Gravity 1.015 (1.005-1.025); Urobilinogen NEGATIVE mg/dL (0-1)
[2021-05-11 12:51] LABS: ALBUMIN 4.7 g/dL (3.5-5.0); ALKALINE PHOSPHATASE 92 U/L (38-126); AMYLASE 93 U/L (30-110); ANION GAP 14.9 MEQ/L (5-15); BLOOD UREA NITROGEN 13 mg/dL (7-17); CHLORIDE 101 mmol/L (98-107); Calcium 9.6 mg/dL (8.4-10.2); Carbon Dioxide 27 mmol/L (22-30); EST GLOMERULAR FILTRATION RATE > 60.0 ML/MIN; Glucose 88 mg/dL (74-106); LIPASE 139 U/L (23-300); Potassium 4.2 mmol/L (3.5-5.1); SGOT/AST 47 U/L (14-36); SGPT/ALT 80 U/L (0-35); SODIUM 139 mmol/L (137-145); Total Protein 7.8 g/dL (6.3-8.2)
[2021-05-11 13:10] VITALS: PULSE 75
--- NOTE | 2021-05-11 13:26 | XRAY ---
Indication: Right abdomen pain. Multiple contiguous axial images obtained through the abdomen and pelvis without contrast. Comparison: January 31, 2016. Lung bases demonstrate stable tiny right posterior gutter calcified granuloma. No infiltrate or effusion. Heart not enlarged. Incidental tiny right infrahilar calcified nodes. Noncontrasted stomach and bowel loops nonobstructed. Normal appendix. Interval cholecystectomy. No free fluid/air. Spleen is now enlarged measuring 13.7 cm. Incidental tiny hepatic/splenic calcified granulomas. Remaining liver, pancreas, spleen, adrenal glands, kidneys, ureters, bladder, uterus, and aorta are unremarkable for noncontrast exam. Osseous structures intact. Impression: 1. Splenomegaly and old granulomatous disease. 2. Remaining CT abdomen/pelvis without contrast exam is negative.
== END 2021-05-11 13:44 | disposition home or self-care (01) ==
LOC: ED 11:53
DX: R10.11 Right upper quadrant pain (principal); R10.31 Right lower quadrant pain; E28.2 Polycystic ovarian syndrome; I10 Essential (primary) hypertension; E66.9 Obesity, unspecified
CPT/HCPCS: 36000; 36415; 74176; 80053; 81001; 82150; 83605; 83690; 84703; 85025; 99284

== ENCOUNTER 2022-11-04 18:39 | Emergency (ER) | payer BC, OTHER ==
[2022-11-04] MEDS ORDERED: XYLOCAINE 1% HCL 20 ML MDV ONE (23:08)
--- NOTE | 2022-11-04 23:22 | ERPHSYRPT ---
- History of Present Illness Time Seen by Provider: 11/04/22 23:16 Source: patient, family Exam Limitations: no limitations Patient Subjective Stated Complaint: cyst on my tailbone that is hurting bad Triage Nursing Assessment: pt ambulated into ER without diff. Pt alert and oriented x4, pleasant and cooperative. Pt has an abscess/cyst onto her coccyx that has been there since 10/30/22. Pt went to [facility] on Saturday11/02/22 and received a shot of Rocephin and was given doxycycline for home twice daily. Pt is in alot of pain, having difficulty sitting and getting comfortable. Area is 3.2 cm L x 2.0 cm W, no redness noted. Pt afebrile. Physician History: pt has recurring pilonidal cyst, now again. has had a week or so of antibiotics and inflammation decreased. discussed with pt and she consents to I &D of infected cyst - Pilonidal cyst at tailbone drained after prep and cleansing, 2 cc local 1% xylocaine. several ccs of fluid drained and pt had immediate relief discussed with pt and she prefers to use sitz bath rather than wick glenn and will followup with surgeon for definintve procedure this week. Timing/Duration: day(s) Quality: painful Severity: moderate Location: other (tailbone area. ) Possible Causes: other (chronic) Associated Symptoms: denies symptoms Allergies/Adverse Reactions: No Known Drug Allergies Allergy (Verified 11/04/22 20:37) Home Medications: Doxycycline Hyclate 100 mg [Vibramycin 100 MG] 100 mg PO BID 11/04/22 [History] Hx Tetanus, Diphtheria Vaccination/Date Given: (unknown) Hx Influenza Vaccination/Date Given: No Hx Pneumococcal Vaccination/Date Given: No Travel Risk - International Travel Have you traveled outside of the country in past 3 weeks: No - Coronavirus Screening Are you exhibiting any of the following symptoms?: No Close contact with a COVID-19 positive Pt in past 14-21 Days: No - Vaccine Status Have you recieved a Covid-19 vaccination: No - Review of Systems Constitutional: No Fever, No Chills Eyes: No Symptoms Ears, Nose, & Throat: No Symptoms Respiratory: No Cough, No Dyspnea Cardiac: No Chest Pain, No Edema, No Syncope Abdominal/Gastrointestinal: No Abdominal Pain, No Nausea, No Vomiting, No Diarrhea Genitourinary Symptoms: No Dysuria Musculoskeletal: No Back Pain, No Neck Pain Skin: No Symptoms, No Rash Neurological: No Dizziness, No Focal Weakness, No Sensory Changes Psychological: No Symptoms Endocrine: No Symptoms Hematologic/Lymphatic: No Symptoms Immunological/Allergic: No Symptoms All Other Systems: Reviewed and Negative - Past Medical History Pertinent Past Medical History: Yes Neurological History: No Pertinent History ENT History: No Pertinent History Cardiac History: Arrhythmia, Hypertension Respiratory History: No Pertinent History Endocrine Medical History: No Pertinent History Musculoskeletal History: No Pertinent History GI Medical History: Other History: No Pertinent History Psycho-Social History: No Pertinent History Female Reproductive Disorders: Other Other Medical History: cysts on ovaries, tachycardia - Past Surgical History Past Surgical History: Yes Neuro Surgical History: No Pertinent History Cardiac: No Pertinent History Respiratory: No Pertinent History Gastrointestinal: Cholecystectomy Genitourinary: No Pertinent History Musculoskeletal: No Pertinent History Female Surgical History: Section Other Surgical History: pt had tonsillectomy aug 2015, EGD May 2016 - Social History Smoking Status: Former smoker How long have you smoked: 10 years Exposure to second hand smoke: No Drug Use: none Patient Lives Alone: No - Female History Hx Last Menstrual Period: 10/22/22 Hx Now: No - Nursing Vital Signs Nursing Vital Signs: Initial Vital Signs Temperature 98.9 F 11/04/22 20:27 Pulse Rate 99 H 11/04/22 20:27 Respiratory Rate 18 11/04/22 20:27 Blood Pressure 142/100 11/04/22 20:27 O2 Sat by Pulse Oximetry 99 11/04/22 20:27 Pain Scale Pain Intensity 5 - Physical Exam General Appearance: no apparent distress, alert Eye Exam: PERRL/EOMI, eyes nml inspection Ears, Nose, Throat Exam: normal ENT inspection, pharynx normal, moist mucous membranes Neck Exam: normal inspection, non-tender, supple, full range of motion Respiratory Exam: normal breath sounds, lungs clear, No respiratory distress Cardiovascular Exam: regular rate/rhythm, normal heart sounds Gastrointestinal/Abdomen Exam: soft, mass, No tenderness Pelvic Exam: deferred Rectal Exam: deferred Back Exam: normal inspection, normal range of motion, No CVA tenderness, No vertebral tenderness Extremity Exam: normal inspection, normal range of motion Neurologic Exam: alert, oriented x 3, cooperative, normal mood/affect, sensation nml, No motor deficits Skin Exam: normal color, warm, dry, other (pilonidal cyst) SpO2 Interpretation: normal SpO2: 99 O2 Delivery: Room Air Procedures - Incision and Drainage Time of Procedure: 23:23 Site: tailbone area Anesthesia: 1% Lidocaine cc's of anesthesia: 2 Blade Size: 11 I & D Procedure: betadine prep, culture obtained, other (left open to drain) Results: large amount pus - Course Nursing assessment & vital signs reviewed: Yes Ordered Tests: Medication Summary Discontinued Medications Generic Name Dose Route Start Last Admin Trade Name Chelsey PRN Reason Stop Dose Admin Lidocaine HCl Confirm 11/04/22 23:08 Lidocaine Hcl 1% 20 Ml Mdv 20 Ml Ml Administered 11/04/22 23:09 Dose 1 ml .ROUTE .mSchool ONE - Progress Progress: improved, re-examined Counseled pt/family regarding: diagnosis, need for follow-up Medical Desision Making - Independent Historian Additional History obtained from: Family - Discussion of managment Reviewed:: Need for additional workup Agreed on:: Treatment plan, need for follow-up - Diagnostic Testing Diagnostic test were ordered, analyzed, and reviewed by me: No - Risk of complications Low Risk: Low risk of morbidity from additional dx testing or treatment - Departure Departure Disposition: Home Clinical Impression: Pilonidal cyst Condition: Good Critical Care Time: No Referrals: ARDEN BATISTA NP [Primary Care Provider] - Follow up/PCP as directed Instructions: Pilonidal Cyst (DC) Additional Instructions: followup with your surgeon for definitive treatment of the abscess to reduce recurrence. continue antibiotics. use sitz bath twice a day to help drainage. return meantime if any concerns.
[2022-11-04 23:34] VITALS: BP 127/84; PULSE 88; O2SAT 98
== END 2022-11-04 23:48 | disposition home or self-care (01) ==
LOC: ED 18:39
DX: L05.91 Pilonidal cyst without abscess (principal); I10 Essential (primary) hypertension; Z79.899 Other long term (current) drug therapy; Z28.310 Unvaccinated for COVID-19
CPT/HCPCS: 10080; 87070; 87077; 99282

== ENCOUNTER 2024-07-21 04:38 | Emergency (ER) | payer SELFPAY ==
[2024-07-21 04:49] VITALS: RESP 20; TEMP 98; O2SAT 97
[2024-07-21] MEDS ORDERED: Augmentin 875-125 Tablet ONE (05:03)
[2024-07-21] MEDS ORDERED: NORCO 5/325 MG ONE (05:03)
--- NOTE | 2024-07-21 05:04 | ERPHSYRPT ---
- History of Present Illness Source: patient Exam Limitations: no limitations Patient Subjective Stated Complaint: reports sudden onset of left ear pain approx midnight tonight. denies injury. Triage Nursing Assessment: pt is aox3, preents to ED grasping left ear, afebrile , resps easy and non labored, cap refill < 3 seconds, radial pulses strong and equal, skin pink warm dry. pt left external ear appears WNL, pt left inner ear is bright red. no drainage noted at this time. Physician History: Patient woke up with acute onset of left ear pain. She says she can still hear but it sounds little bit muffled at times. She has had no fever. She went to bed feeling fine woke up with pretty significant ear pain. She describes it as sharp and aching. Movement of the ear hurts a little bit. Nothing really makes it better or worse. She has not had problems like this before. There is no new trauma or anything like that. Allergies/Adverse Reactions: No Known Drug Allergies Allergy (Verified 07/21/24 04:49) Home Medications: No Reportable Medications [No Reported Medications] 07/21/24 [History] Hx Tetanus, Diphtheria Vaccination/Date Given: No (unknown) Hx Influenza Vaccination/Date Given: No Hx Pneumococcal Vaccination/Date Given: No Immunizations Up to Date: No Travel Risk - International Travel Have you traveled outside of the country in past 3 weeks: No - Emerging Infectious Disease Are you exhibiting symptoms associated with any current EIDs: No - Review of Systems Constitutional: No Symptoms Eyes: No Symptoms Ears, Nose, & Throat: Ear Pain, Hearing Changes, No Ear Discharge, No Tinnitus, No Nose Pain, No Nose Congestion, No Sinus Drainage, No Epistaxis, No Mouth Pa in, No Mouth Swelling Respiratory: No Symptoms Cardiac: No Symptoms All Other Systems: Reviewed and Negative - Past Medical History Pertinent Past Medical History: Yes Neurological History: No Pertinent History ENT History: No Pertinent History Cardiac History: Arrhythmia, Hypertension Respiratory History: No Pertinent History Endocrine Medical History: No Pertinent History Musculoskeletal History: No Pertinent History GI Medical History: Other History: No Pertinent History Psycho-Social History: No Pertinent History Female Reproductive Disorders: Other Other Medical History: cysts on ovaries, tachycardia - Past Surgical History Past Surgical History: Yes Neuro Surgical History: No Pertinent History Cardiac: No Pertinent History Respiratory: No Pertinent History Gastrointestinal: Cholecystectomy Genitourinary: No Pertinent History Musculoskeletal: No Pertinent History Female Surgical History: Section Other Surgical History: pt had tonsillectomy aug 2015, EGD May 2016 - Female History Hx Last Menstrual Period: 07/21/24 Hx Now: No - Social History Smoking Status: Former smoker How long have you smoked: 10 years Exposure to second hand smoke: No Drug Use: none Patient Lives Alone: No - Social Determinants of Health Will the patient participate in the screening: Yes Do you worry about a steady place to live?: No Do you have any problems with any of the following?: No known problems In the past 12 months,have you had to go without utilities?: No Transportation Issues: No Has anyone in your support network made you feel unsafe?: No Have you or anyone in your house had to go without enough: No - Nursing Vital Signs Nursing Vital Signs: Initial Vital Signs Temperature 98 F 07/21/24 04:40 Pulse Rate 98 H 07/21/24 04:40 Respiratory Rate 20 07/21/24 04:40 Blood Pressure 153/106 07/21/24 04:40 O2 Sat by Pulse Oximetry 97 07/21/24 04:40 Pain Scale Pain Intensity 6 - Physical Exam General Appearance: no apparent distress Eye Exam: bilateral eye: normal inspection, PERRL, EOMI Ear Exam: left ear: foreign body, TM red, TM bulging Nasal Exam: normal inspection Throat Exam: normal, pharynx normal Neck Exam: normal inspection, non-tender Neurologic Exam: alert, oriented x 3 SpO2: 97 - Course Nursing assessment & vital signs reviewed: Yes Ordered Tests: Medication Summary Discontinued Medications Generic Name Dose Route Start Last Admin Trade Name Chelsey PRN Reason Stop Dose Admin Hydrocodone Bitart/Acetaminophen 2 tab 07/21/24 04:58 Hydrocodone/Apap 5/325 1 Tab Tablet PO 07/21/24 04:59 STAT ONE Amoxicillin/Clavulanate Potassium 875 mg 07/21/24 04:58 Amox Tr/Potassium Clavulanate 875 Mg Tablet PO 07/21/24 04:59 STAT ONE - Progress Progress: unchanged Progress Note: Patient is stable throughout stay. She has simple otitis media. I went to start her on Augmentin and Floxin otic. She is given some [place] for pain 07/21/24 05:03 Medical Desision Making - Independent Historian Additional History obtained from: Spouse - Diagnostic Testing Diagnostic test were ordered, analyzed, and reviewed by me: Yes - Risk of complications Minimal Risk: Minimal risk of morbidity - Departure Departure Disposition: Home Clinical Impression: Otitis media Condition: Stable Critical Care Time: No
[2024-07-21] MEDS: NORCO 5/325 MG PO ONE (05:09)
[2024-07-21] MEDS: Augmentin 875-125 Tablet PO ONE (05:09)
[2024-07-21] MEDS: Floxin Otic 5 ML OT ONE (05:15)
[2024-07-21 05:31] VITALS: BP 135/104; PULSE 70
== END 2024-07-21 05:30 | disposition home or self-care (01) ==
LOC: ED 04:38
DX: H66.92 Otitis media, unspecified, left ear (principal); H92.02 Otalgia, left ear
CPT/HCPCS: 99282; A9270-GY